=== PATIENT | female | born 1960 | race Caucasian/White ===

== ENCOUNTER 2024-07-04 15:26 | Emergency (ER) | payer OTHER ==
[~2024-07-04] VITALS: Ht 162.6 cm; Wt 104.3 kg
[~2024-07-04 15:26] MED LIST: SACC250C12 GT; VANC1VIA34 IV
[2024-07-04 15:31] VITALS: TEMP 97.9
[2024-07-04] MEDS ORDERED: PIPERACI/TAZO 3.375GM/D5W 50ML PB IV ONE (16:00)
[2024-07-04] MEDS: IV NS 0.9% 1,000 ML IV ONE (16:15)
[2024-07-04] MEDS: PIPERACILLIN /TAZOBACTAM 3.375 G in IV D5W 50 ML IV ONE (16:35)
[2024-07-04 16:54] LABS: APPEARANCE,URINE CLOUDY (CLEAR); BILIRUBIN,URINE NEGATIVE (NEGATIVE); BLOOD, URINE 1+ Ery/uL (NEGATIVE); COLOR,URINE YELLOW (YELLOW); KETONES,URINE NEGATIVE (NEGATIVE); LEUKOCYTE ESTERASE ,URINE 2+ (NEGATIVE); NITRITE, URINE NEGATIVE (NEGATIVE); PROTEIN,URINE 2+ mg/dl (NEGATIVE); UGLUCOSE NEGATIVE (NEGATIVE); UROBILINOGEN,URINE 0.2 EU/dL (0.2)
[2024-07-04 17:06] LABS: ADD URINE CULTURE YES; BACTERIA,URINE 3+ /HPF (None Seen); PH,URINE 8.5 (5.0-8.0); WBC,URINE 21-50 /HPF (0-3)
[2024-07-04 17:07] LABS: FINE GRANULAR CASTS,URINE Few /LPF (None Seen); TRIPLE PHOSPHATE CRYSTAL,UR Moderate /HPF (None Seen); URINE AMORPHOUS PHOSPHATES Many /HPF (None Seen)
[2024-07-04 17:08] LABS: COARSE GRANULAR CASTS,URINE Few /LPF (None Seen)
[2024-07-04] MEDS ORDERED: CHLO473M2 PO (17:11)
[2024-07-04] MEDS ORDERED: FAMO20TA8 GT (17:11)
[2024-07-04] MEDS ORDERED: IPRA0.2S49 IH (17:11)
[2024-07-04] MEDS ORDERED: LOPE2CAP14 GT (17:11)
[2024-07-04] MEDS ORDERED: LABE200T5 GT (17:11)
[2024-07-04] MEDS ORDERED: GABA-532 GT (17:11)
[2024-07-04] MEDS ORDERED: DOCU100C36 GT (17:11)
[2024-07-04] MEDS ORDERED: LEVE500S9 GT (17:11)
[2024-07-04] MEDS ORDERED: HEPA50007 SQ (17:11)
[2024-07-04] MEDS ORDERED: HYDR-4075 GT (17:11)
[2024-07-04] MEDS ORDERED: ACET160L44 GT (17:11)
[2024-07-04] MEDS ORDERED: CRAN425C6 GT (17:11)
[2024-07-04] MEDS ORDERED: ALBU2.5V38 IH (17:11)
[2024-07-04] MEDS ORDERED: MULT-213 GT (17:11)
[2024-07-04] MEDS ORDERED: MAGN400O6 GT (17:11)
[2024-07-04] MEDS ORDERED: NA P133E RC (17:11)
[2024-07-04] MEDS ORDERED: ACET160S GT (17:11)
[2024-07-04 18:02] LABS: BASOPHILS % (AUTO) 0.1 % (0.0-2.0); HEMATOCRIT 28 % (33-45); HEMOGLOBIN 8.8 g/dL (11.5-14.8); LYMPHOCYTES # (AUTO) 0.9 K/uL (0.8-4.8); LYMPHOCYTES % (AUTO) 3.1 % (20.0-44.0); MEAN CORPUSCULAR HEMOGLOBIN 26 PG (26.0-33.0); MEAN CORPUSCULAR HGB CONC 32 g/dl (31.0-36.0); MEAN CORPUSCULAR VOLUME 82 fL (82-100); MONOCYTES % (AUTO) 3.3 % (2.0-12.0); NEUTROPHILS # (AUTO) 26.8 K/uL (1.8-8.9); NEUTROPHILS % (AUTO) 93.5 % (43.0-81.0); PLATELET COUNT (AUTO) 466 K/uL (150-450); RED BLOOD CELL COUNT(AUTO) 3.35 MIL/uL (4.0-5.2); RED CELL DISTRIBUTION WIDTH 17.2 % (11.5-15.0); WHITE BLOOD COUNT (AUTO) 28.7 K/uL (4.3-11.0)
[2024-07-04 18:22] LABS: CALCIUM, SERUM 10.6 mg/dL (8.5-10.1); CARBON DIOXIDE 21 mmol/L (21-32); CHLORIDE 102 mmol/L (98-107); CREATININE 0.6 mg/dL (0.6-1.3); GLUCOSE 97 mg/dL (74-106); POTASSIUM 4.4 mmol/L (3.5-5.1); SODIUM SERUM 136 mmol/L (136-145); UREA NITROGEN, BLOOD 12 mg/dL (7-18)
[2024-07-04 18:32] LABS: LACTIC ACID 3.6 mmol/L (0.4-2.0)
[2024-07-04 18:36] LABS: ALANINE AMINOTRANSFERASE 28 U/L (12-78); ALKALINE PHOSPHATASE 163 U/L (46-116); ASPARTATE AMINOTRANSFERASE 44 U/L (15-37); BILIRUBIN,TOTAL 0.4 mg/dL (0.2-1.0); NT-PRO BNP 994 pg/mL (0-125); TOTAL PROTEIN, SERUM 5.6 g/dL (6.4-8.2)
[2024-07-04 19:09] LABS: ANISOCYTOSIS 1+; BAND % (MANUAL) 7 % (0.0-5.0); LYMPHOCYTES % (MANUAL) 6 % (16-48); MONOCYTES % (MANUAL) 2 % (0-11.0); NEUTROPHILS % (MANUAL) 85 (42-76); PLATELET ESTIMATE INCREASED
[2024-07-04 20:00] VITALS: BP 102/79; O2SAT 100
[2024-07-04 20:26] LABS: BILIRUBIN,DIRECT 0.1 mg/dL (0.0-0.2)
[2024-07-04 20:38] LABS: LACTIC ACID REFLEX 3.1 mmol/L (0.4-1.9)
== END 2024-07-04 21:00 | disposition short-term general hospital (02) ==
LOC: ER 15:30
DX: L03.311 Cellulitis of abdominal wall (principal); I48.91 Unspecified atrial fibrillation; I70.0 Atherosclerosis of aorta; J44.9 Chronic obstructive pulmonary disease, unspecified; K21.9 Gastro-esophageal reflux disease without esophagitis; Z88.1 Allergy status to other antibiotic agents; Z88.8 Allergy status to other drugs, medicaments and biological substances; Z91.041 Radiographic dye allergy status; Z93.0 Tracheostomy status; Z98.1 Arthrodesis status; Z99.11 Dependence on respirator [ventilator] status; Z20.822 Contact with and (suspected) exposure to COVID-19
CPT/HCPCS: 99285; 96365; 71045; 87426; 93005; 82803; 82248; 85025; 87040; 87086; 83605 ×2; 81001; 36415; 80053; 84484; 83880; 36600; 94799; 85007; J2543 ×2; J7060

== ENCOUNTER 2024-07-28 08:03 | Inpatient (IN) | payer OTHER ==
[~2024-07-28] VITALS: Ht 167.6 cm; Wt 108.0 kg
[2024-07-28] MEDS: PIPERACILLIN /TAZOBACTAM 3.375 G in IV D5W 50 ML IV ONE (08:00)
[~2024-07-28 08:03] MED LIST changes: +ACET160L44 GT; +ACET160S GT; +ALBU2.5V38 IH; +CHLO473M2 PO; +CRAN425C6 GT; +DOCU100C36 GT; +FAMO20TA8 GT; +GABA-532 GT; +HEPA50007 SQ; +HYDR-4075 GT; +IPRA0.2S49 IH; +LABE200T5 GT; +LEVE500S9 GT; +LOPE2CAP14 GT; +MAGN400O6 GT; +MULT-213 GT; +NA P133E RC
[2024-07-28] MEDS ORDERED: ACETAMINOPHEN 650 MG/SUPP.RECT RC ONE (08:07)
[2024-07-28] MEDS: ACETAMINOPHEN 650 MG/SUPP.RECT RC ONE (08:11)
[2024-07-28] MEDS: IV NS 0.9% 1,000 ML BAG IV ONE ×2 (08:20→08:40)
[2024-07-28 08:25] LABS: BASOPHILS % (AUTO) 0.1 % (0.0-2.0); HEMATOCRIT 26 % (33-45); HEMOGLOBIN 8.2 g/dL (11.5-14.8); LYMPHOCYTES # (AUTO) 0.7 K/uL (0.8-4.8); LYMPHOCYTES % (AUTO) 2.8 % (20.0-44.0); MEAN CORPUSCULAR HEMOGLOBIN 26 PG (26.0-33.0); MEAN CORPUSCULAR HGB CONC 31 g/dl (31.0-36.0); MEAN CORPUSCULAR VOLUME 84 fL (82-100); MONOCYTES # (AUTO) 0.5 K/uL (0.1-1.30); NEUTROPHILS # (AUTO) 22.4 K/uL (1.8-8.9); NEUTROPHILS % (AUTO) 95.1 % (43.0-81.0); PLATELET COUNT (AUTO) 325 K/uL (150-450); RED BLOOD CELL COUNT(AUTO) 3.13 MIL/uL (4.0-5.2); RED CELL DISTRIBUTION WIDTH 18.7 % (11.5-15.0); WHITE BLOOD COUNT (AUTO) 23.5 K/uL (4.3-11.0)
[2024-07-28 08:52] LABS: ALANINE AMINOTRANSFERASE 12 U/L (12-78); ALKALINE PHOSPHATASE 186 U/L (46-116); ASPARTATE AMINOTRANSFERASE 10 U/L (15-37); BILIRUBIN,DIRECT 0.4 mg/dL (0.0-0.2); BILIRUBIN,TOTAL 0.6 mg/dL (0.2-1.0); CALCIUM, SERUM 8.7 mg/dL (8.5-10.1); CARBON DIOXIDE 25 mmol/L (21-32); CHLORIDE 111 mmol/L (98-107); CREATININE 0.6 mg/dL (0.6-1.3); GLUCOSE 159 mg/dL (74-106); SODIUM SERUM 145 mmol/L (136-145); TOTAL PROTEIN, SERUM 5.5 g/dL (6.4-8.2); UREA NITROGEN, BLOOD 15 mg/dL (7-18)
[2024-07-28 09:04] LABS: ALBUMIN 1.2 g/dL (3.4-5.0)
[2024-07-28] MEDS: VANCOMYCIN 1 GM in IV D5W 250 ML IV ONE (09:05)
[2024-07-28] MEDS ORDERED: LEVE100S GT (09:05)
[2024-07-28] MEDS ORDERED: POTA-88 GT (09:05)
[2024-07-28] MEDS ORDERED: ZINC50TA65 GT (09:05)
[2024-07-28] MEDS ORDERED: LEVO500T90 GT (09:05)
[2024-07-28] MEDS ORDERED: AMIN30LI66 GT (09:05)
[2024-07-28] MEDS ORDERED: ASCO500L2 GT (09:05)
[2024-07-28] MEDS ORDERED: PEPTAMEN GT (09:05)
[2024-07-28] MEDS ORDERED: POVI3780 TP (09:05)
[2024-07-28] MEDS ORDERED: HYDR-4303 GT (09:05)
[2024-07-28 09:06] LABS: LACTIC ACID 4.1 mmol/L (0.4-2.0)
[2024-07-28 10:03] LABS: BAND % (MANUAL) 18 % (0.0-5.0); LYMPHOCYTES % (MANUAL) 3 % (16-48); MYELOCYTES % 1 % (0-0); NEUTROPHILS % (MANUAL) 78 (42-76); PLATELET ESTIMATE ADEQUATE
[2024-07-28 10:04] LABS: ANISOCYTOSIS 1+
[2024-07-28] MEDS ORDERED: POTASSIUM CL. PREMIX PERIPHER. 100 ML ONE (10:05)
[2024-07-28] MEDS: POTASSIUM CL. PREMIX PERIPHER. 50 ML IV SCH (10:10)
[2024-07-28] MEDS ORDERED: IOHEXOL-300 100 ML VIAL IV ONE (10:29)
[2024-07-28] MEDS ORDERED: IV NS 0.9% 250 ML IV ONE (10:29)
[2024-07-28 11:01] LABS: APPEARANCE,URINE SLIGHTLY CLOUDY (CLEAR); BILIRUBIN,URINE NEGATIVE (NEGATIVE); BLOOD, URINE NEGATIVE Ery/uL (NEGATIVE); COLOR,URINE DARK YELLOW (YELLOW); KETONES,URINE NEGATIVE (NEGATIVE); LEUKOCYTE ESTERASE ,URINE 2+ (NEGATIVE); NITRITE, URINE POSITIVE (NEGATIVE); PH,URINE 8.5 (5.0-8.0); PROTEIN,URINE 3+ mg/dl (NEGATIVE); UGLUCOSE NEGATIVE (NEGATIVE); UROBILINOGEN,URINE 0.2 EU/dL (0.2)
[2024-07-28 11:51] LABS: ADD URINE CULTURE YES; BACTERIA,URINE 3+ /HPF (None Seen); CALCIUM PHOSPHATE CRYSTALS,UR Moderate /HPF (None Seen); RBC,URINE 0-2 /HPF (0-2)
[2024-07-28] MEDS: Magnesium 1GM/D5W 100ML PREMIX 100 ML IV SCH (13:18)
[2024-07-28] MEDS ORDERED: MAG HYDROX/AL HYDROX/SIMETH 30 ML UDC PO PRN (13:30)
[2024-07-28] MEDS ORDERED: ONDANSETRON HCL/PF 4 MG/2 ML VIAL IVP PRN (13:30)
[2024-07-28] MEDS ORDERED: ACETAMINOPHEN 325 MG TABLET PO PRN (13:30)
[2024-07-28] MEDS ORDERED: MAGNESIUM HYDROXIDE 30 ML UDC PO PRN (13:30)
[2024-07-28 13:58] LABS: THYROID STIMULATING HORMONE 3.21 uIU/mL (0.358-3.74)
[2024-07-28] MEDS: ENOXAPARIN SODIUM 40 MG/0.4 ML DISP.SYRIN SQ SCH (14:41)
[2024-07-28] MEDS: CEFEPIME 2 GM in IV D5W 100 ML IV SCH (14:42)
[2024-07-28] MEDS: VANCOMYCIN 1 GM in IV D5W 250ml IV ONE (15:38)
[2024-07-28 16:00] VITALS: BP 84/63; TEMP 98.7; O2SAT 99
[2024-07-28] MEDS ORDERED: METRONIDAZOLE 500 MG TABLET PO SCH (18:00)
[2024-07-28] MEDS: METRONIDAZOLE 500MG/ NS 100ML 500 MG in PREMIX 1 EA IV SCH (19:15)
[2024-07-28 20:00] VITALS: BP 99/60; TEMP 98.7; O2SAT 99
[2024-07-28] MEDS: IV 1/2NS 1000 ML 1,000 ML IV PRN (22:10)
[2024-07-29] VITALS (14 sets, daily range): BP systolic 82–132; BP diastolic 57–87; TEMP 97.4–101.7; O2SAT 96–100
[2024-07-29] MEDS: ACETAMINOPHEN 650 MG/SUPP.RECT RC PRN (01:37)
[2024-07-29 06:59] LABS: CALCIUM, SERUM 8.9 mg/dL (8.5-10.1); CREATININE 0.7 mg/dL (0.6-1.3); PHOSPHORUS 3.7 mg/dL (2.5-4.9); POTASSIUM 3.4 mmol/L (3.5-5.1)
[2024-07-29 07:00] LABS: HEMATOCRIT 28 % (33-45); HEMOGLOBIN 8.5 g/dL (11.5-14.8); LYMPHOCYTES # (AUTO) 1.2 K/uL (0.8-4.8); LYMPHOCYTES % (AUTO) 3.7 % (20.0-44.0); MEAN CORPUSCULAR HEMOGLOBIN 26 PG (26.0-33.0); MEAN CORPUSCULAR HGB CONC 30 g/dl (31.0-36.0); MEAN CORPUSCULAR VOLUME 84 fL (82-100); MONOCYTES # (AUTO) 0.9 K/uL (0.1-1.30); MONOCYTES % (AUTO) 2.7 % (2.0-12.0); NEUTROPHILS # (AUTO) 30.1 K/uL (1.8-8.9); NEUTROPHILS % (AUTO) 93.6 % (43.0-81.0); PLATELET COUNT (AUTO) 365 K/uL (150-450); RED BLOOD CELL COUNT(AUTO) 3.32 MIL/uL (4.0-5.2); RED CELL DISTRIBUTION WIDTH 18.6 % (11.5-15.0)
[2024-07-29 07:01] LABS: WHITE BLOOD COUNT (AUTO) 32.2 K/uL (4.3-11.0)
[2024-07-29] MEDS: VANCOMYCIN 1 GM in IV D5W 250ml IV SCH (07:14)
[2024-07-29] MEDS: PANTOPRAZOLE 40 MG TABLET.DR PO SCH (07:30)
[2024-07-29 09:53] LABS: BAND % (MANUAL) 3 % (0.0-5.0); LYMPHOCYTES % (MANUAL) 6 % (16-48); MONOCYTES % (MANUAL) 2 % (0-11.0); NEUTROPHILS % (MANUAL) 89 (42-76)
[2024-07-29 09:54] LABS: PLATELET ESTIMATE ADEQUATE
[2024-07-29 09:55] LABS: ANISOCYTOSIS 1+
[2024-07-29 09:56] LABS: OVALOCYTES 1+; TEAR DROP CELLS 1+
[2024-07-29] MEDS: POTASSIUM CL. PREMIX PERIPHER. 50 ML IV SCH (10:00)
[2024-07-29] MEDS: PANTOPRAZOLE 40 MG VIAL IV SCH (10:51)
[2024-07-29] MEDS: THERAHONEY GEL 1.5 OZ TUBE TP SCH (11:09)
[2024-07-29] MEDS: LEVETIRACETAM (500MG) 500 MG in IV NS 0.9% 100 ML IV SCH (15:39)
[2024-07-29] MEDS ORDERED: PHENYLEPHRINE 50 MG in IV NS 0.9% 245 ML IV PRN (18:00)
[2024-07-29] MEDS: MEROPENEM 500MG/NS 50 ML PB IV ONE (21:41)
[2024-07-29] MEDS: MEROPENEM 1 G in IV NS 0.9% 100 ML IV ONE (21:48)
[2024-07-30] VITALS (24 sets, daily range): BP systolic 81–117; BP diastolic 53–78; TEMP 98.4–99.6; O2SAT 97–100
[2024-07-30 05:21] LABS: CALCIUM, SERUM 8.4 mg/dL (8.5-10.1); CREATININE 1.1 mg/dL (0.6-1.3); POTASSIUM 3.8 mmol/L (3.5-5.1)
[2024-07-30] MEDS: MEROPENEM 1 G in IV NS 0.9% 100 ML IV SCH (08:10)
[2024-07-30 13:32] LABS: CREATININE, URINE 67.7 MG/DL (30.0-125.0); URINE TOTAL PROTEIN 200.8 mg/dL (0-11.9)
[2024-07-31] VITALS (27 sets, daily range): BP systolic 77–107; BP diastolic 54–78; TEMP 97.3–98.9; O2SAT 88–100
[2024-07-31] MEDS ORDERED: LEVETIRACETAM (500MG) 500 MG/5 ML VIAL IV ONE (04:20)
[2024-07-31 04:30] LABS: CALCIUM, SERUM 8.2 mg/dL (8.5-10.1); CREATININE 1.8 mg/dL (0.6-1.3); MAGNESIUM 1.9 mg/dL (1.8-2.4); PHOSPHORUS 5.9 mg/dL (2.5-4.9); POTASSIUM 3.8 mmol/L (3.5-5.1)
[2024-07-31 04:36] LABS: BASOPHILS # (AUTO) 0.1 K/uL (0.0-0.2); BASOPHILS % (AUTO) 0.1 % (0.0-2.0); HEMATOCRIT 29 % (33-45); HEMOGLOBIN 8.9 g/dL (11.5-14.8); LYMPHOCYTES # (AUTO) 1.6 K/uL (0.8-4.8); LYMPHOCYTES % (AUTO) 2.9 % (20.0-44.0); MEAN CORPUSCULAR HEMOGLOBIN 26 PG (26.0-33.0); MEAN CORPUSCULAR HGB CONC 30 g/dl (31.0-36.0); MEAN CORPUSCULAR VOLUME 85 fL (82-100); MONOCYTES # (AUTO) 1.3 K/uL (0.1-1.30); MONOCYTES % (AUTO) 2.3 % (2.0-12.0); NEUTROPHILS # (AUTO) 51.9 K/uL (1.8-8.9); NEUTROPHILS % (AUTO) 94.7 % (43.0-81.0); PLATELET COUNT (AUTO) 400 K/uL (150-450); RED BLOOD CELL COUNT(AUTO) 3.43 MIL/uL (4.0-5.2); RED CELL DISTRIBUTION WIDTH 18.6 % (11.5-15.0)
[2024-07-31 05:24] LABS: WHITE BLOOD COUNT (AUTO) 54.9 K/uL (4.3-11.0)
[2024-07-31 06:09] LABS: ANISOCYTOSIS 1+; LYMPHOCYTES % (MANUAL) 10 % (16-48); MONOCYTES % (MANUAL) 7 % (0-11.0); NEUTROPHILS % (MANUAL) 83 (42-76); PLATELET ESTIMATE ADEQUATE
[2024-07-31 09:01] LABS: BASOPHILS # (AUTO) 0.2 K/uL (0.0-0.2); BASOPHILS % (AUTO) 0.4 % (0.0-2.0); EOSINOPHILS % (AUTO) 0.1 % (0.0-6.0); HEMATOCRIT 31 % (33-45); HEMOGLOBIN 9.4 g/dL (11.5-14.8); LYMPHOCYTES # (AUTO) 1.2 K/uL (0.8-4.8); LYMPHOCYTES % (AUTO) 2.8 % (20.0-44.0); MEAN CORPUSCULAR HEMOGLOBIN 25 PG (26.0-33.0); MEAN CORPUSCULAR HGB CONC 30 g/dl (31.0-36.0); MEAN CORPUSCULAR VOLUME 84 fL (82-100); MONOCYTES % (AUTO) 2.4 % (2.0-12.0); NEUTROPHILS # (AUTO) 41.2 K/uL (1.8-8.9); NEUTROPHILS % (AUTO) 94.3 % (43.0-81.0); PLATELET COUNT (AUTO) 339 K/uL (150-450); RED BLOOD CELL COUNT(AUTO) 3.72 MIL/uL (4.0-5.2); RED CELL DISTRIBUTION WIDTH 18.9 % (11.5-15.0)
[2024-07-31 09:11] LABS: WHITE BLOOD COUNT (AUTO) 43.6 K/uL (4.3-11.0)
[2024-07-31] MEDS: HYDROCORTISONE SOD SUCCINATE 100 MG/2 ML VIAL IV SCH (09:25)
[2024-07-31 09:58] LABS: BAND % (MANUAL) 1 % (0.0-5.0); LYMPHOCYTES % (MANUAL) 5 % (16-48); MONOCYTES % (MANUAL) 2 % (0-11.0); MYELOCYTES % 5 % (0-0); NEUTROPHILS % (MANUAL) 87 (42-76); PLATELET ESTIMATE ADEQUATE
[2024-07-31 09:59] LABS: ANISOCYTOSIS 1+; OVALOCYTES 1+
[2024-07-31] MEDS: DIGOXIN INJ 0.5 MG/2 ML AMPUL IV SCH (11:05)
[2024-07-31] MEDS: MIDODRINE HCL (5MG) 5 MG TABLET PO SCH (12:55)
[2024-08-01] VITALS (29 sets, daily range): BP systolic 83–128; BP diastolic 55–82; TEMP 97.6–98; O2SAT 93–100
[2024-08-01 04:47] LABS: BASOPHILS # (AUTO) 0.1 K/uL (0.0-0.2); BASOPHILS % (AUTO) 0.2 % (0.0-2.0); EOSINOPHILS % (AUTO) 0.1 % (0.0-6.0); HEMATOCRIT 26 % (33-45); HEMOGLOBIN 7.9 g/dL (11.5-14.8); LYMPHOCYTES # (AUTO) 0.9 K/uL (0.8-4.8); LYMPHOCYTES % (AUTO) 1.9 % (20.0-44.0); MEAN CORPUSCULAR HEMOGLOBIN 25 PG (26.0-33.0); MEAN CORPUSCULAR HGB CONC 30 g/dl (31.0-36.0); MEAN CORPUSCULAR VOLUME 84 fL (82-100); NEUTROPHILS # (AUTO) 45.8 K/uL (1.8-8.9); NEUTROPHILS % (AUTO) 95.8 % (43.0-81.0); PLATELET COUNT (AUTO) 339 K/uL (150-450); RED BLOOD CELL COUNT(AUTO) 3.13 MIL/uL (4.0-5.2); RED CELL DISTRIBUTION WIDTH 18.8 % (11.5-15.0)
[2024-08-01 04:54] LABS: WHITE BLOOD COUNT (AUTO) 47.8 K/uL (4.3-11.0)
[2024-08-01 04:59] LABS: CALCIUM, SERUM 7.6 mg/dL (8.5-10.1); POTASSIUM 3.9 mmol/L (3.5-5.1)
[2024-08-01 05:21] LABS: ANISOCYTOSIS 1+; LYMPHOCYTES % (MANUAL) 4 % (16-48); MONOCYTES % (MANUAL) 2 % (0-11.0); NEUTROPHILS % (MANUAL) 94 (42-76); PLATELET ESTIMATE ADEQUATE
[2024-08-01] MEDS: MIDODRINE HCL (5MG) 5 MG TABLET PO SCH (08:42)
[2024-08-02] VITALS (27 sets, daily range): BP systolic 83–117; BP diastolic 53–88; TEMP 97.6–98.4; O2SAT 96–100
[2024-08-02 05:03] LABS: BASOPHILS # (AUTO) 0.1 K/uL (0.0-0.2); BASOPHILS % (AUTO) 0.1 % (0.0-2.0); EOSINOPHILS % (AUTO) 0.1 % (0.0-6.0); HEMATOCRIT 26 % (33-45); LYMPHOCYTES # (AUTO) 1.4 K/uL (0.8-4.8); MEAN CORPUSCULAR HEMOGLOBIN 26 PG (26.0-33.0); MEAN CORPUSCULAR HGB CONC 30 g/dl (31.0-36.0); MEAN CORPUSCULAR VOLUME 84 fL (82-100); MONOCYTES # (AUTO) 1.1 K/uL (0.1-1.30); MONOCYTES % (AUTO) 2.3 % (2.0-12.0); NEUTROPHILS # (AUTO) 42.8 K/uL (1.8-8.9); NEUTROPHILS % (AUTO) 94.5 % (43.0-81.0); PLATELET COUNT (AUTO) 358 K/uL (150-450); RED BLOOD CELL COUNT(AUTO) 3.11 MIL/uL (4.0-5.2); RED CELL DISTRIBUTION WIDTH 18.5 % (11.5-15.0)
[2024-08-02 05:06] LABS: WHITE BLOOD COUNT (AUTO) 45.3 K/uL (4.3-11.0)
[2024-08-02 05:16] LABS: CALCIUM, SERUM 7.2 mg/dL (8.5-10.1); CREATININE 2.2 mg/dL (0.6-1.3); POTASSIUM 3.6 mmol/L (3.5-5.1)
[2024-08-02 08:16] LABS: BAND % (MANUAL) 2 % (0.0-5.0); EOSINOPHILS % (MANUAL) 0 % (0-4); LYMPHOCYTES % (MANUAL) 5 % (16-48); METAMYELOCYTES % 2 % (0-0); MONOCYTES % (MANUAL) 3 % (0-11.0); MYELOCYTES % 3 % (0-0); NEUTROPHILS % (MANUAL) 85 (42-76); PLATELET ESTIMATE DECREASED
[2024-08-02 08:17] LABS: ANISOCYTOSIS 1+; HYPOCHROMASIA 1+
[2024-08-02] MEDS: HYDROCORTISONE SOD SUCCINATE 100 MG/2 ML VIAL IV SCH (08:47)
[2024-08-02] MEDS ORDERED: VANCOMYCIN 1 GM in IV D5W 250 ML IV SCH (10:00)
[2024-08-02] MEDS: DEXTROSE 50%-WATER 50 ML DISP.SYRIN IVP ONE (10:09)
[2024-08-02] MEDS ORDERED: MAGNESIUM HYDROXIDE 30 ML UDC GT PRN (10:13)
[2024-08-02 10:17] LABS: ABG BASE EXCESS -11.6 mmol/L (-2.0-3.0); ABG OXYGEN SATURATION 97.7 % (94.0-98.0); ABG PCO2 23.6 mmHg (32.0-45.0); ABG PH 7.346 (7.350-7.450); ABG PO2 108.5 mmHg (83.0-108.0); ABG TOTAL HEMOGLOBIN 8.8 G/dL (12.0-16.0); COHb 0.3 % (0.5-1.5); MetHb 0.2 % (0.0-1.5); O2Hb 97.2 % (94.0-97.0); PEEP,BG 0 cm H2O; SITE, ABG RIGHT RADIAL; VT, ABG 500 mL
[2024-08-02] MEDS: Sodium Bicarbonate 100 MEQ in IV D5 / 0.2% NACL 1,000 ML IV SCH (11:42)
[2024-08-02] MEDS: VITAL AF 1.2 1,000 ML BOTTLE GT PRN (12:14)
[2024-08-02] MEDS: MIDODRINE HCL (5MG) 5 MG TABLET GT SCH (12:21)
[2024-08-03] VITALS (24 sets, daily range): BP systolic 90–130; BP diastolic 60–96; TEMP 97.3–98.3; O2SAT 93–100
[2024-08-03 04:31] LABS: BASOPHILS # (AUTO) 0.1 K/uL (0.0-0.2); BASOPHILS % (AUTO) 0.3 % (0.0-2.0); EOSINOPHILS % (AUTO) 0.1 % (0.0-6.0); HEMATOCRIT 23 % (33-45); HEMOGLOBIN 7.1 g/dL (11.5-14.8); LYMPHOCYTES # (AUTO) 1.4 K/uL (0.8-4.8); LYMPHOCYTES % (AUTO) 3.6 % (20.0-44.0); MEAN CORPUSCULAR HEMOGLOBIN 25 PG (26.0-33.0); MEAN CORPUSCULAR HGB CONC 30 g/dl (31.0-36.0); MEAN CORPUSCULAR VOLUME 83 fL (82-100); MONOCYTES # (AUTO) 0.7 K/uL (0.1-1.30); PLATELET COUNT (AUTO) 309 K/uL (150-450); RED CELL DISTRIBUTION WIDTH 18.4 % (11.5-15.0)
[2024-08-03 05:16] LABS: WHITE BLOOD COUNT (AUTO) 38.3 K/uL (4.3-11.0)
[2024-08-03 05:24] LABS: ANISOCYTOSIS 1+; LYMPHOCYTES % (MANUAL) 5 % (16-48); MONOCYTES % (MANUAL) 4 % (0-11.0); NEUTROPHILS % (MANUAL) 91 (42-76); PLATELET ESTIMATE ADEQUATE
[2024-08-03 05:26] LABS: CALCIUM, SERUM 6.6 mg/dL (8.5-10.1); CREATININE 2.4 mg/dL (0.6-1.3); MAGNESIUM 1.9 mg/dL (1.8-2.4); PHOSPHORUS 7.6 mg/dL (2.5-4.9)
[2024-08-03] MEDS: LEVETIRACETAM SOL (5 ML) 100 MG/ML UDC GT SCH (09:10)
[2024-08-03] MEDS: PANTOPRAZOLE 40 MG/PACK PACK NG SCH (09:11)
[2024-08-03] MEDS: POTASSIUM CL. PREMIX PERIPHER. 50 ML IV SCH (09:14)
[2024-08-03] MEDS: POTASSIUM CHLORIDE 20 MEQ POWDER PACKET NG SCH (10:45)
[2024-08-04] VITALS (26 sets, daily range): BP systolic 91–133; BP diastolic 55–89; TEMP 97.2–98.4; O2SAT 98–100
[2024-08-04 05:25] LABS: CALCIUM, SERUM 6.9 mg/dL (8.5-10.1); CREATININE 2.4 mg/dL (0.6-1.3); POTASSIUM 3.3 mmol/L (3.5-5.1)
[2024-08-04] MEDS: POTASSIUM CL. PREMIX PERIPHER. 50 ML IV SCH (09:28)
[2024-08-04 12:18] LABS: BASOPHILS # (AUTO) 0.1 K/uL (0.0-0.2); BASOPHILS % (AUTO) 0.3 % (0.0-2.0); EOSINOPHILS # (AUTO) 0.1 K/uL (0.0-0.7); EOSINOPHILS % (AUTO) 0.3 % (0.0-6.0); HEMATOCRIT 26 % (33-45); HEMOGLOBIN 7.7 g/dL (11.5-14.8); LYMPHOCYTES # (AUTO) 0.8 K/uL (0.8-4.8); LYMPHOCYTES % (AUTO) 2.5 % (20.0-44.0); MEAN CORPUSCULAR HEMOGLOBIN 26 PG (26.0-33.0); MEAN CORPUSCULAR HGB CONC 30 g/dl (31.0-36.0); MEAN CORPUSCULAR VOLUME 86 fL (82-100); MONOCYTES # (AUTO) 1.1 K/uL (0.1-1.30); MONOCYTES % (AUTO) 3.2 % (2.0-12.0); NEUTROPHILS # (AUTO) 31.7 K/uL (1.8-8.9); NEUTROPHILS % (AUTO) 93.7 % (43.0-81.0); PLATELET COUNT (AUTO) 291 K/uL (150-450); RED CELL DISTRIBUTION WIDTH 18.7 % (11.5-15.0)
[2024-08-04 12:23] LABS: WHITE BLOOD COUNT (AUTO) 33.9 K/uL (4.3-11.0)
[2024-08-04 13:08] LABS: ANISOCYTOSIS 1+; BAND % (MANUAL) 4 % (0.0-5.0); BASOPHILS % (MANUAL) 0 % (0.0-2.0); EOSINOPHILS % (MANUAL) 0 % (0-4); HYPOCHROMASIA FEW; LYMPHOCYTES % (MANUAL) 2 % (16-48); MONOCYTES % (MANUAL) 5 % (0-11.0); NEUTROPHILS % (MANUAL) 89 (42-76); PLATELET ESTIMATE ADEQUATE
[2024-08-05] VITALS (23 sets, daily range): BP systolic 90–130; BP diastolic 70–94; TEMP 97.6–98; O2SAT 99–100
[2024-08-05 04:45] LABS: EOSINOPHILS # (AUTO) 0.1 K/uL (0.0-0.7); EOSINOPHILS % (AUTO) 0.3 % (0.0-6.0); HEMATOCRIT 23 % (33-45); HEMOGLOBIN 7.4 g/dL (11.5-14.8); LYMPHOCYTES # (AUTO) 0.6 K/uL (0.8-4.8); LYMPHOCYTES % (AUTO) 2.5 % (20.0-44.0); MEAN CORPUSCULAR HEMOGLOBIN 26 PG (26.0-33.0); MEAN CORPUSCULAR HGB CONC 32 g/dl (31.0-36.0); MEAN CORPUSCULAR VOLUME 83 fL (82-100); MONOCYTES # (AUTO) 0.9 K/uL (0.1-1.30); MONOCYTES % (AUTO) 3.7 % (2.0-12.0); NEUTROPHILS # (AUTO) 23.6 K/uL (1.8-8.9); NEUTROPHILS % (AUTO) 93.5 % (43.0-81.0); PLATELET COUNT (AUTO) 220 K/uL (150-450); RED BLOOD CELL COUNT(AUTO) 2.82 MIL/uL (4.0-5.2); RED CELL DISTRIBUTION WIDTH 18.4 % (11.5-15.0); WHITE BLOOD COUNT (AUTO) 25.2 K/uL (4.3-11.0)
[2024-08-05 05:10] LABS: CREATININE 2.6 mg/dL (0.6-1.3); POTASSIUM 2.9 mmol/L (3.5-5.1)
[2024-08-05] MEDS ORDERED: MAG HYDROX/AL HYDROX/SIMETH 30 ML UDC GT PRN (06:16)
[2024-08-05 06:22] LABS: EOSINOPHILS % (MANUAL) 1 % (0-4); LYMPHOCYTES % (MANUAL) 4 % (16-48); METAMYELOCYTES % 1 % (0-0); MONOCYTES % (MANUAL) 3 % (0-11.0); MYELOCYTES % 3 % (0-0); NEUTROPHILS % (MANUAL) 88 (42-76); PLATELET ESTIMATE ADEQUATE
[2024-08-05 06:23] LABS: ANISOCYTOSIS 1+
[2024-08-05 08:36] LABS: ABG BASE EXCESS -9.3 mmol/L (-2.0-3.0); ABG OXYGEN SATURATION 98.3 % (94.0-98.0); ABG PCO2 30.3 mmHg (32.0-45.0); ABG PO2 128.7 mmHg (83.0-108.0); ABG TOTAL HEMOGLOBIN 8.1 G/dL (12.0-16.0); COHb 0.3 % (0.5-1.5); MetHb 0.2 % (0.0-1.5); O2Hb 97.8 % (94.0-97.0); VT, ABG 500 mL
[2024-08-05] MEDS: POTASSIUM CL. PREMIX PERIPHER. 50 ML IV SCH (09:09)
[2024-08-05] MEDS ORDERED: VANCOMYCIN 1 GM in IV D5W 250 ML IV SCH (10:00)
[2024-08-05] MEDS: IV NS 0.9% 250 ML IV PRN (22:37)
[2024-08-06] VITALS (28 sets, daily range): BP systolic 90–116; BP diastolic 54–93; TEMP 97–98; O2SAT 97–100
[2024-08-06 04:57] LABS: CALCIUM, SERUM 7.2 mg/dL (8.5-10.1); CREATININE 2.5 mg/dL (0.6-1.3)
[2024-08-06 05:15] LABS: BASOPHILS % (AUTO) 0.3 % (0.0-2.0); EOSINOPHILS # (AUTO) 0.1 K/uL (0.0-0.7); EOSINOPHILS % (AUTO) 0.4 % (0.0-6.0); HEMATOCRIT 22 % (33-45); LYMPHOCYTES # (AUTO) 0.7 K/uL (0.8-4.8); LYMPHOCYTES % (AUTO) 3.6 % (20.0-44.0); MEAN CORPUSCULAR HEMOGLOBIN 25 PG (26.0-33.0); MEAN CORPUSCULAR HGB CONC 31 g/dl (31.0-36.0); MEAN CORPUSCULAR VOLUME 82 fL (82-100); MONOCYTES # (AUTO) 0.5 K/uL (0.1-1.30); MONOCYTES % (AUTO) 2.8 % (2.0-12.0); NEUTROPHILS # (AUTO) 16.9 K/uL (1.8-8.9); NEUTROPHILS % (AUTO) 92.9 % (43.0-81.0); PLATELET COUNT (AUTO) 172 K/uL (150-450); RED BLOOD CELL COUNT(AUTO) 2.73 MIL/uL (4.0-5.2); RED CELL DISTRIBUTION WIDTH 18.8 % (11.5-15.0); WHITE BLOOD COUNT (AUTO) 18.2 K/uL (4.3-11.0)
[2024-08-06 05:37] LABS: HEMOGLOBIN 6.9 g/dL (11.5-14.8)
[2024-08-06 06:11] LABS: BAND % (MANUAL) 3 % (0.0-5.0); METAMYELOCYTES % 3 % (0-0); MONOCYTES % (MANUAL) 4 % (0-11.0); MYELOCYTES % 5 % (0-0); NEUTROPHILS % (MANUAL) 85 (42-76)
[2024-08-06 06:12] LABS: ANISOCYTOSIS 1+; HYPOCHROMASIA 1+; PLATELET ESTIMATE ADEQUATE; TARGET CELLS 1+
[2024-08-06 06:24] LABS: LYMPHOCYTES % (MANUAL) 0 % (16-48)
[2024-08-06] MEDS: POTASSIUM CHLORIDE 20 MEQ POWDER PACKET GT ONE (10:50)
[2024-08-07] VITALS (24 sets, daily range): BP systolic 91–129; BP diastolic 68–94; TEMP 97.4–98; O2SAT 99–100
[2024-08-07 05:26] LABS: BASOPHILS % (AUTO) 0.1 % (0.0-2.0); EOSINOPHILS # (AUTO) 0.1 K/uL (0.0-0.7); EOSINOPHILS % (AUTO) 0.3 % (0.0-6.0); HEMATOCRIT 25 % (33-45); HEMOGLOBIN 8.3 g/dL (11.5-14.8); LYMPHOCYTES # (AUTO) 0.8 K/uL (0.8-4.8); LYMPHOCYTES % (AUTO) 4.9 % (20.0-44.0); MEAN CORPUSCULAR HEMOGLOBIN 27 PG (26.0-33.0); MEAN CORPUSCULAR HGB CONC 33 g/dl (31.0-36.0); MEAN CORPUSCULAR VOLUME 81 fL (82-100); MONOCYTES # (AUTO) 0.4 K/uL (0.1-1.30); MONOCYTES % (AUTO) 2.4 % (2.0-12.0); NEUTROPHILS # (AUTO) 14.4 K/uL (1.8-8.9); NEUTROPHILS % (AUTO) 92.3 % (43.0-81.0); PLATELET COUNT (AUTO) 161 K/uL (150-450); RED BLOOD CELL COUNT(AUTO) 3.13 MIL/uL (4.0-5.2); RED CELL DISTRIBUTION WIDTH 18.3 % (11.5-15.0); WHITE BLOOD COUNT (AUTO) 15.6 K/uL (4.3-11.0)
[2024-08-07 05:33] LABS: CALCIUM, SERUM 7.5 mg/dL (8.5-10.1); CREATININE 2.6 mg/dL (0.6-1.3); MAGNESIUM 1.9 mg/dL (1.8-2.4); PHOSPHORUS 6.5 mg/dL (2.5-4.9); POTASSIUM 3.3 mmol/L (3.5-5.1)
[2024-08-07 10:05] LABS: BAND % (MANUAL) 1 % (0.0-5.0); LYMPHOCYTES % (MANUAL) 7 % (16-48); METAMYELOCYTES % 1 % (0-0); MONOCYTES % (MANUAL) 3 % (0-11.0); MYELOCYTES % 3 % (0-0); NEUTROPHILS % (MANUAL) 85 (42-76)
[2024-08-07 10:06] LABS: PLATELET ESTIMATE ADEQUATE
[2024-08-07 10:07] LABS: ANISOCYTOSIS 1+; TARGET CELLS 1+
[2024-08-08] VITALS (8 sets, daily range): BP systolic 94–115; BP diastolic 58–85; TEMP 97.5–98.8; O2SAT 97–100
[2024-08-08 07:38] LABS: CALCIUM, SERUM 7.7 mg/dL (8.5-10.1); CREATININE 2.5 mg/dL (0.6-1.3); MAGNESIUM 1.8 mg/dL (1.8-2.4); PHOSPHORUS 6.5 mg/dL (2.5-4.9)
[2024-08-08 07:48] LABS: BASOPHILS # (AUTO) 0.1 K/uL (0.0-0.2); BASOPHILS % (AUTO) 0.4 % (0.0-2.0); EOSINOPHILS % (AUTO) 0.2 % (0.0-6.0); HEMATOCRIT 25 % (33-45); HEMOGLOBIN 8.1 g/dL (11.5-14.8); LYMPHOCYTES # (AUTO) 2.4 K/uL (0.8-4.8); LYMPHOCYTES % (AUTO) 16.6 % (20.0-44.0); MEAN CORPUSCULAR HEMOGLOBIN 27 PG (26.0-33.0); MEAN CORPUSCULAR HGB CONC 32 g/dl (31.0-36.0); MEAN CORPUSCULAR VOLUME 83 fL (82-100); MONOCYTES # (AUTO) 0.3 K/uL (0.1-1.30); MONOCYTES % (AUTO) 2.3 % (2.0-12.0); NEUTROPHILS # (AUTO) 11.5 K/uL (1.8-8.9); NEUTROPHILS % (AUTO) 80.5 % (43.0-81.0); PLATELET COUNT (AUTO) 123 K/uL (150-450); RED BLOOD CELL COUNT(AUTO) 3.04 MIL/uL (4.0-5.2); RED CELL DISTRIBUTION WIDTH 18.4 % (11.5-15.0); WHITE BLOOD COUNT (AUTO) 14.3 K/uL (4.3-11.0)
[2024-08-08] MEDS: VANCOMYCIN 1 GM in IV D5W 250 ML IV SCH (10:00)
[2024-08-08] MEDS: POTASSIUM CHLORIDE 20 MEQ POWDER PACKET GT ONE (10:42)
[2024-08-09] VITALS: BP 94/78; TEMP 98.2; O2SAT 99
[2024-08-09 04:00] VITALS: BP 107/78; TEMP 98.5; O2SAT 99
[2024-08-09 07:27] LABS: CALCIUM, SERUM 7.7 mg/dL (8.5-10.1); CREATININE 2.7 mg/dL (0.6-1.3); POTASSIUM 3.4 mmol/L (3.5-5.1)
[2024-08-09 08:00] VITALS: BP 107/77; TEMP 98.2; O2SAT 100
[2024-08-09 08:22] LABS: ABG BASE EXCESS -7.2 mmol/L (-2.0-3.0); ABG OXYGEN SATURATION 97.6 % (94.0-98.0); ABG PCO2 25.7 mmHg (32.0-45.0); ABG PH 7.418 (7.350-7.450); ABG PO2 105.2 mmHg (83.0-108.0); ABG TOTAL HEMOGLOBIN 8.8 G/dL (12.0-16.0); MetHb 0.2 % (0.0-1.5); O2Hb 97.4 % (94.0-97.0); PEEP,BG 0 cm H2O; SITE, ABG RIGHT RADIAL; VT, ABG 500 mL
[2024-08-09] MEDS: POTASSIUM CHLORIDE 20 MEQ POWDER PACKET GT SCH (08:37)
[2024-08-09] MEDS ORDERED: POTASSIUM CHLORIDE 20 MEQ POWDER PACKET GT SCH (09:00)
[2024-08-09 10:28] LABS: BASOPHILS # (AUTO) 0.1 K/uL (0.0-0.2); BASOPHILS % (AUTO) 0.5 % (0.0-2.0); EOSINOPHILS % (AUTO) 0.1 % (0.0-6.0); HEMATOCRIT 25 % (33-45); HEMOGLOBIN 8.1 g/dL (11.5-14.8); LYMPHOCYTES # (AUTO) 0.9 K/uL (0.8-4.8); LYMPHOCYTES % (AUTO) 5.5 % (20.0-44.0); MEAN CORPUSCULAR HEMOGLOBIN 26 PG (26.0-33.0); MEAN CORPUSCULAR HGB CONC 32 g/dl (31.0-36.0); MEAN CORPUSCULAR VOLUME 82 fL (82-100); MONOCYTES # (AUTO) 0.4 K/uL (0.1-1.30); MONOCYTES % (AUTO) 2.4 % (2.0-12.0); NEUTROPHILS # (AUTO) 14.7 K/uL (1.8-8.9); NEUTROPHILS % (AUTO) 91.5 % (43.0-81.0); PLATELET COUNT (AUTO) 119 K/uL (150-450); RED BLOOD CELL COUNT(AUTO) 3.08 MIL/uL (4.0-5.2); RED CELL DISTRIBUTION WIDTH 18.1 % (11.5-15.0)
[2024-08-09 11:11] LABS: BAND % (MANUAL) 1 % (0.0-5.0); LYMPHOCYTES % (MANUAL) 6 % (16-48); METAMYELOCYTES % 1 % (0-0); MONOCYTES % (MANUAL) 2 % (0-11.0); MYELOCYTES % 2 % (0-0); NEUTROPHILS % (MANUAL) 88 (42-76); PLATELET ESTIMATE DECREASED
[2024-08-09 11:13] LABS: TARGET CELLS 1+
[2024-08-09 11:14] LABS: ANISOCYTOSIS 1+
[2024-08-09 12:00] VITALS: BP 110/83; TEMP 97.4; O2SAT 99
[2024-08-09 16:00] VITALS: BP 113/86; TEMP 97.5; O2SAT 100
[2024-08-09] MEDS: PROSOURCE / PROSTAT (PYXIS) 30 ML UDC GT SCH (17:27)
[2024-08-09 20:00] VITALS: BP 109/78; TEMP 98.1; O2SAT 100
[2024-08-09] MEDS: MEROPENEM 500 MG in IV NS 0.9% 50 ML IV SCH (20:39)
[2024-08-09] MEDS: IV NS 0.9% 1,000 ML IV PRN (21:43)
[2024-08-10] VITALS: BP 109/69; TEMP 98.1; O2SAT 100
[2024-08-10 04:00] VITALS: BP 117/89; TEMP 97.9; O2SAT 100
[2024-08-10 08:00] VITALS: BP 109/73; TEMP 99.3; O2SAT 100
[2024-08-10 09:03] LABS: CALCIUM, SERUM 8.1 mg/dL (8.5-10.1); CREATININE 2.6 mg/dL (0.6-1.3); MAGNESIUM 1.9 mg/dL (1.8-2.4); PHOSPHORUS 7.2 mg/dL (2.5-4.9); POTASSIUM 3.6 mmol/L (3.5-5.1)
[2024-08-10 09:27] LABS: BASOPHILS % (AUTO) 0.3 % (0.0-2.0); HEMATOCRIT 24 % (33-45); HEMOGLOBIN 7.8 g/dL (11.5-14.8); LYMPHOCYTES # (AUTO) 2.2 K/uL (0.8-4.8); LYMPHOCYTES % (AUTO) 14.4 % (20.0-44.0); MEAN CORPUSCULAR HEMOGLOBIN 26 PG (26.0-33.0); MEAN CORPUSCULAR HGB CONC 32 g/dl (31.0-36.0); MEAN CORPUSCULAR VOLUME 81 fL (82-100); MONOCYTES # (AUTO) 0.3 K/uL (0.1-1.30); MONOCYTES % (AUTO) 2.1 % (2.0-12.0); NEUTROPHILS # (AUTO) 12.8 K/uL (1.8-8.9); NEUTROPHILS % (AUTO) 83.2 % (43.0-81.0); PLATELET COUNT (AUTO) 120 K/uL (150-450); RED BLOOD CELL COUNT(AUTO) 2.97 MIL/uL (4.0-5.2); RED CELL DISTRIBUTION WIDTH 18.3 % (11.5-15.0); WHITE BLOOD COUNT (AUTO) 15.4 K/uL (4.3-11.0)
[2024-08-10 12:00] VITALS: BP 124/83; TEMP 99; O2SAT 100
[2024-08-10] MEDS: SEVELAMER CARBONATE 800 MG POWD.PACK GT SCH (13:42)
[2024-08-10] MEDS: METRONIDAZOLE 500 MG TABLET GT SCH (13:42)
[2024-08-10 16:00] VITALS: BP 116/80; TEMP 98.4; O2SAT 100
[2024-08-10 20:00] VITALS: BP 103/75; TEMP 98.1; O2SAT 100
[2024-08-11] VITALS: BP 98/76; TEMP 98.1; O2SAT 100
[2024-08-11 04:00] VITALS: BP 101/69; TEMP 97.9; O2SAT 100
[2024-08-11 07:57] LABS: BASOPHILS # (AUTO) 0.1 K/uL (0.0-0.2); BASOPHILS % (AUTO) 0.4 % (0.0-2.0); EOSINOPHILS % (AUTO) 0.1 % (0.0-6.0); HEMATOCRIT 24 % (33-45); HEMOGLOBIN 7.7 g/dL (11.5-14.8); LYMPHOCYTES # (AUTO) 3.7 K/uL (0.8-4.8); LYMPHOCYTES % (AUTO) 25.2 % (20.0-44.0); MEAN CORPUSCULAR HEMOGLOBIN 26 PG (26.0-33.0); MEAN CORPUSCULAR HGB CONC 32 g/dl (31.0-36.0); MEAN CORPUSCULAR VOLUME 82 fL (82-100); MONOCYTES # (AUTO) 0.2 K/uL (0.1-1.30); MONOCYTES % (AUTO) 1.4 % (2.0-12.0); NEUTROPHILS # (AUTO) 10.6 K/uL (1.8-8.9); NEUTROPHILS % (AUTO) 72.9 % (43.0-81.0); PLATELET COUNT (AUTO) 118 K/uL (150-450); RED BLOOD CELL COUNT(AUTO) 2.91 MIL/uL (4.0-5.2); WHITE BLOOD COUNT (AUTO) 14.5 K/uL (4.3-11.0)
[2024-08-11 08:01] VITALS: BP 115/99; TEMP 97.6; O2SAT 100
[2024-08-11 08:17] LABS: CALCIUM, SERUM 7.6 mg/dL (8.5-10.1); CREATININE 2.6 mg/dL (0.6-1.3); MAGNESIUM 1.9 mg/dL (1.8-2.4); PHOSPHORUS 7.4 mg/dL (2.5-4.9)
[2024-08-11] MEDS ORDERED: VANCOMYCIN 1 GM in IV D5W 250 ML IV SCH (10:00)
[2024-08-11] MEDS ORDERED: POTASSIUM CHLORIDE 20 MEQ POWDER PACKET GT ONE (10:00)
[2024-08-11 10:15] LABS: BAND % (MANUAL) 3 % (0.0-5.0); LYMPHOCYTES % (MANUAL) 3 % (16-48); MONOCYTES % (MANUAL) 3 % (0-11.0); MYELOCYTES % 1 % (0-0); NEUTROPHILS % (MANUAL) 90 (42-76); PLATELET ESTIMATE DECREASED
[2024-08-11 10:16] LABS: ANISOCYTOSIS 1+; TARGET CELLS 1+
[2024-08-11] MEDS: POTASSIUM CHLORIDE 20 MEQ POWDER PACKET GT SCH (10:39)
[2024-08-11] MEDS ORDERED: DIATR MEGLU/DIATRIZOATE SODIUM 30 ML BOTTLE (GASTROGRAPHIN) ONE (11:34)
[2024-08-11 12:01] VITALS: BP 101/80; TEMP 97.9; O2SAT 100
[2024-08-11 16:00] VITALS: BP 98/75; TEMP 97.5; O2SAT 100
[2024-08-11 20:00] VITALS: BP 110/85; TEMP 97.3; O2SAT 98
[2024-08-12] VITALS: BP 121/73; TEMP 97.5; O2SAT 100
[2024-08-12 04:00] VITALS: BP 99/83; TEMP 97.5; O2SAT 98
[2024-08-12 08:00] VITALS: BP 91/60; TEMP 97.5; O2SAT 100
[2024-08-12] MEDS: POTASSIUM CHLORIDE 20 MEQ POWDER PACKET GT SCH (10:30)
[2024-08-12] MEDS ORDERED: DIATR MEGLU/DIATRIZOATE SODIUM 30 ML BOTTLE (GASTROGRAPHIN) ONE (10:34)
[2024-08-12 12:00] VITALS: BP 91/60; TEMP 97.5; O2SAT 100
[2024-08-12] MEDS: POTASSIUM CHLORIDE 10 MEQ/50 ML PREMIXED IVPB FOR PERIPHERAL LINE IV SCH (12:17)
[2024-08-12 16:00] VITALS: BP 98/54; TEMP 94.7; O2SAT 100
[2024-08-12 20:00] VITALS: BP 97/85; TEMP 95.2; O2SAT 100
[2024-08-12] MEDS: MEROPENEM 1 G in IV NS 0.9% 100 ML IV SCH (21:30)
[2024-08-13] VITALS: BP_SYST 97; BP_DIAS 63; BP_DIAS 85; TEMP 95.2; TEMP 97.5; O2SAT 100
[2024-08-13 04:00] VITALS: BP 96/73; TEMP 98.5; O2SAT 100
[2024-08-13 07:30] LABS: BASOPHILS # (AUTO) 0.1 K/uL (0.0-0.2); BASOPHILS % (AUTO) 0.6 % (0.0-2.0); HEMATOCRIT 24 % (33-45); HEMOGLOBIN 7.6 g/dL (11.5-14.8); LYMPHOCYTES # (AUTO) 2.9 K/uL (0.8-4.8); LYMPHOCYTES % (AUTO) 24.5 % (20.0-44.0); MEAN CORPUSCULAR HEMOGLOBIN 27 PG (26.0-33.0); MEAN CORPUSCULAR HGB CONC 32 g/dl (31.0-36.0); MEAN CORPUSCULAR VOLUME 83 fL (82-100); MONOCYTES # (AUTO) 0.3 K/uL (0.1-1.30); MONOCYTES % (AUTO) 2.4 % (2.0-12.0); NEUTROPHILS # (AUTO) 8.7 K/uL (1.8-8.9); NEUTROPHILS % (AUTO) 72.5 % (43.0-81.0); PLATELET COUNT (AUTO) 124 K/uL (150-450); RED BLOOD CELL COUNT(AUTO) 2.84 MIL/uL (4.0-5.2); RED CELL DISTRIBUTION WIDTH 18.5 % (11.5-15.0)
[2024-08-13 08:00] VITALS: BP 105/79; TEMP 97.5; O2SAT 100
[2024-08-13 08:06] LABS: CREATININE 2.5 mg/dL (0.6-1.3); MAGNESIUM 1.7 mg/dL (1.8-2.4); PHOSPHORUS 7.7 mg/dL (2.5-4.9); POTASSIUM 3.6 mmol/L (3.5-5.1)
[2024-08-13] MEDS ORDERED: Magnesium 1GM/D5W 100ML PREMIX 100 ML IV SCH (10:30)
[2024-08-13 12:00] VITALS: BP 108/68; TEMP 98; O2SAT 100
[2024-08-13] MEDS: LEVETIRACETAM (500MG) 500 MG in IV NS 0.9% 100 ML IV SCH (12:20)
[2024-08-13] MEDS: Magnesium 1GM/D5W 100ML PREMIX 100 ML IV SCH (14:25)
[2024-08-13 16:00] VITALS: BP 106/80; TEMP 97.8; O2SAT 100
[2024-08-13 20:00] VITALS: BP_SYST 107; BP_SYST 92; BP_DIAS 72; BP_DIAS 75; TEMP 97.3; TEMP 97.8; O2SAT 100
[2024-08-14] VITALS: BP 102/69; TEMP 98.2; O2SAT 100
[2024-08-14 04:00] VITALS: BP 90/60; TEMP 97.5; O2SAT 100
[2024-08-14 08:00] VITALS: BP 112/69; TEMP 97.9; O2SAT 100
[2024-08-14 08:03] LABS: BASOPHILS % (AUTO) 0.2 % (0.0-2.0); HEMATOCRIT 23 % (33-45); LYMPHOCYTES # (AUTO) 0.9 K/uL (0.8-4.8); LYMPHOCYTES % (AUTO) 5.1 % (20.0-44.0); MEAN CORPUSCULAR HEMOGLOBIN 26 PG (26.0-33.0); MEAN CORPUSCULAR HGB CONC 31 g/dl (31.0-36.0); MEAN CORPUSCULAR VOLUME 83 fL (82-100); MONOCYTES # (AUTO) 0.4 K/uL (0.1-1.30); MONOCYTES % (AUTO) 2.2 % (2.0-12.0); NEUTROPHILS # (AUTO) 16.5 K/uL (1.8-8.9); NEUTROPHILS % (AUTO) 92.5 % (43.0-81.0); PLATELET COUNT (AUTO) 108 K/uL (150-450); RED BLOOD CELL COUNT(AUTO) 2.73 MIL/uL (4.0-5.2); RED CELL DISTRIBUTION WIDTH 18.3 % (11.5-15.0); WHITE BLOOD COUNT (AUTO) 17.9 K/uL (4.3-11.0)
[2024-08-14 08:10] LABS: CALCIUM, SERUM 7.6 mg/dL (8.5-10.1); CREATININE 2.5 mg/dL (0.6-1.3); MAGNESIUM 2.1 mg/dL (1.8-2.4); PHOSPHORUS 7.7 mg/dL (2.5-4.9)
[2024-08-14] MEDS ORDERED: POTASSIUM CHLORIDE 20 MEQ POWDER PACKET GT SCH (09:30)
[2024-08-14] MEDS ORDERED: POTASSIUM CHLORIDE 10 MEQ/50 ML PREMIXED IVPB FOR PERIPHERAL LINE IV SCH (11:00)
[2024-08-14] MEDS: POTASSIUM CL. PREMIX PERIPHER. 50 ML IV SCH (11:00)
[2024-08-14] MEDS: METRONIDAZOLE 500MG/ NS 100ML 500 MG in PREMIX 1 EA IV SCH (11:02)
[2024-08-14 12:00] VITALS: BP 107/68; TEMP 97.6; O2SAT 100
[2024-08-14 16:00] VITALS: BP 96/71; TEMP 97.6; O2SAT 99
[2024-08-14 20:00] VITALS: BP 101/70; TEMP 97.1; O2SAT 100
[2024-08-14] MEDS: FUROSEMIDE 20 MG/2 ML VIAL IV SCH (21:15)
[2024-08-15] VITALS (13 sets, daily range): BP systolic 83–100; BP diastolic 56–80; TEMP 96.3–98.1; O2SAT 99–100
[2024-08-15 08:35] LABS: CALCIUM, SERUM 7.9 mg/dL (8.5-10.1); CREATININE 2.5 mg/dL (0.6-1.3); POTASSIUM 3.3 mmol/L (3.5-5.1)
[2024-08-15 08:42] LABS: BASOPHILS # (AUTO) 0.1 K/uL (0.0-0.2); BASOPHILS % (AUTO) 0.3 % (0.0-2.0); EOSINOPHILS % (AUTO) 0.1 % (0.0-6.0); HEMATOCRIT 21 % (33-45); INR 1.74 (0.91-1.10); LYMPHOCYTES # (AUTO) 6.4 K/uL (0.8-4.8); LYMPHOCYTES % (AUTO) 27.5 % (20.0-44.0); MEAN CORPUSCULAR HEMOGLOBIN 27 PG (26.0-33.0); MEAN CORPUSCULAR HGB CONC 32 g/dl (31.0-36.0); MEAN CORPUSCULAR VOLUME 84 fL (82-100); MONOCYTES # (AUTO) 0.3 K/uL (0.1-1.30); MONOCYTES % (AUTO) 1.5 % (2.0-12.0); NEUTROPHILS # (AUTO) 16.4 K/uL (1.8-8.9); NEUTROPHILS % (AUTO) 70.6 % (43.0-81.0); PARTIAL THROMBOPLASTIN TIME 48.4 SEC (24.3-34.3); PLATELET COUNT (AUTO) 105 K/uL (150-450); PROTHROMBIN TIME 17.8 SECS (9.2-11.1); RED BLOOD CELL COUNT(AUTO) 2.48 MIL/uL (4.0-5.2); RED CELL DISTRIBUTION WIDTH 18.8 % (11.5-15.0); WHITE BLOOD COUNT (AUTO) 23.2 K/uL (4.3-11.0)
[2024-08-15 09:07] LABS: PHOSPHORUS 8.2 mg/dL (2.5-4.9)
[2024-08-15 09:08] LABS: HEMOGLOBIN 6.6 g/dL (11.5-14.8)
[2024-08-15 12:37] LABS: BAND % (MANUAL) 2 % (0.0-5.0); LYMPHOCYTES % (MANUAL) 3 % (16-48); NEUTROPHILS % (MANUAL) 95 (42-76); PLATELET ESTIMATE DECREASED
[2024-08-15 12:38] LABS: ANISOCYTOSIS 1+
[2024-08-15 21:34] LABS: HEMOGLOBIN 7.6 g/dL (11.5-14.8)
[2024-08-16] VITALS: BP 98/65; TEMP 97.5; O2SAT 100
[2024-08-16 04:00] VITALS: BP 90/70; TEMP 99; O2SAT 100
[2024-08-16] MEDS: SEVELAMER CARBONATE 800 MG POWD.PACK GT SCH (07:53)
[2024-08-16 08:00] VITALS: BP 80/54; TEMP 99.1; O2SAT 99
[2024-08-16 08:22] LABS: CALCIUM, SERUM 7.2 mg/dL (8.5-10.1); CREATININE 2.6 mg/dL (0.6-1.3); PHOSPHORUS 7.3 mg/dL (2.5-4.9); POTASSIUM 3.1 mmol/L (3.5-5.1)
[2024-08-16 08:23] LABS: BASOPHILS # (AUTO) 0.1 K/uL (0.0-0.2); BASOPHILS % (AUTO) 0.6 % (0.0-2.0); EOSINOPHILS % (AUTO) 0.1 % (0.0-6.0); HEMATOCRIT 25 % (33-45); HEMOGLOBIN 7.8 g/dL (11.5-14.8); LYMPHOCYTES % (AUTO) 9.8 % (20.0-44.0); MEAN CORPUSCULAR HEMOGLOBIN 27 PG (26.0-33.0); MEAN CORPUSCULAR HGB CONC 32 g/dl (31.0-36.0); MEAN CORPUSCULAR VOLUME 87 fL (82-100); MONOCYTES # (AUTO) 0.3 K/uL (0.1-1.30); MONOCYTES % (AUTO) 2.7 % (2.0-12.0); NEUTROPHILS # (AUTO) 8.5 K/uL (1.8-8.9); NEUTROPHILS % (AUTO) 86.8 % (43.0-81.0); PLATELET COUNT (AUTO) 118 K/uL (150-450); RED BLOOD CELL COUNT(AUTO) 2.84 MIL/uL (4.0-5.2); WHITE BLOOD COUNT (AUTO) 9.8 K/uL (4.3-11.0)
[2024-08-16 12:00] VITALS: BP 81/55; TEMP 98.4; O2SAT 99
[2024-08-16] MEDS ORDERED: POTASSIUM PHOSPHATE MM 5 MMOL in IV NS 0.9% 100 ML IV SCH (14:00)
[2024-08-16 16:00] VITALS: BP 93/63; TEMP 97.5; O2SAT 99
[2024-08-16] MEDS: POTASSIUM CHLORIDE 20 MEQ POWDER PACKET GT ONE (17:27)
[2024-08-16 20:00] VITALS: BP 102/62; TEMP 96.8; O2SAT 99
[2024-08-17] VITALS: BP 104/80; TEMP 96.8; O2SAT 100
[2024-08-17 04:00] VITALS: BP 101/64; TEMP 96.8; O2SAT 100
[2024-08-17 08:00] VITALS: BP 120/61; TEMP 97.1; O2SAT 100
[2024-08-17] MEDS: LEVETIRACETAM SOL (5 ML) 100 MG/ML UDC GT SCH (10:36)
[2024-08-17 12:00] VITALS: BP 118/54; TEMP 97.3; O2SAT 100
[2024-08-17] MEDS: METRONIDAZOLE 500 MG TABLET GT SCH (12:55)
[2024-08-17 15:04] LABS: CALCIUM, SERUM 7.3 mg/dL (8.5-10.1); CREATININE 2.6 mg/dL (0.6-1.3); POTASSIUM 3.4 mmol/L (3.5-5.1)
[2024-08-17 16:00] VITALS: BP 120/60; TEMP 97; O2SAT 100
[2024-08-17 17:05] LABS: BASOPHILS # (AUTO) 0.1 K/uL (0.0-0.2); BASOPHILS % (AUTO) 0.5 % (0.0-2.0); EOSINOPHILS % (AUTO) 0.1 % (0.0-6.0); HEMATOCRIT 24 % (33-45); HEMOGLOBIN 7.4 g/dL (11.5-14.8); LYMPHOCYTES # (AUTO) 2.2 K/uL (0.8-4.8); LYMPHOCYTES % (AUTO) 11.5 % (20.0-44.0); MEAN CORPUSCULAR HEMOGLOBIN 28 PG (26.0-33.0); MEAN CORPUSCULAR HGB CONC 31 g/dl (31.0-36.0); MEAN CORPUSCULAR VOLUME 91 fL (82-100); MONOCYTES # (AUTO) 0.4 K/uL (0.1-1.30); MONOCYTES % (AUTO) 2.2 % (2.0-12.0); NEUTROPHILS # (AUTO) 16.6 K/uL (1.8-8.9); NEUTROPHILS % (AUTO) 85.7 % (43.0-81.0); PLATELET COUNT (AUTO) 78 K/uL (150-450); RED BLOOD CELL COUNT(AUTO) 2.66 MIL/uL (4.0-5.2); RED CELL DISTRIBUTION WIDTH 19.3 % (11.5-15.0); WHITE BLOOD COUNT (AUTO) 19.4 K/uL (4.3-11.0)
[2024-08-17 18:09] LABS: BAND % (MANUAL) 3 % (0.0-5.0); LYMPHOCYTES % (MANUAL) 2 % (16-48); MYELOCYTES % 3 % (0-0); NEUTROPHILS % (MANUAL) 92 (42-76)
[2024-08-17 18:10] LABS: PLATELET ESTIMATE DECREASED
[2024-08-17 18:11] LABS: ANISOCYTOSIS 1+; TARGET CELLS 1+
[2024-08-17 20:00] VITALS: BP 85/65; TEMP 97.7; O2SAT 100
[2024-08-17] MEDS ORDERED: POTASSIUM CHLORIDE 20 MEQ TAB.PRT.SR PO ONE (20:30)
[2024-08-17] MEDS: POTASSIUM CHLORIDE 20 MEQ POWDER PACKET GT ONE (21:05)
[2024-08-18] VITALS: BP 95/73; TEMP 94.3; O2SAT 100
[2024-08-18 04:00] VITALS: BP 93/72; TEMP 96.2; O2SAT 97
[2024-08-18 08:00] VITALS: BP 90/69; TEMP 97.3; TEMP 98.4; O2SAT 94
[2024-08-18 09:06] LABS: CALCIUM, SERUM 7.5 mg/dL (8.5-10.1); CREATININE 2.6 mg/dL (0.6-1.3); MAGNESIUM 2.1 mg/dL (1.8-2.4); PHOSPHORUS 6.3 mg/dL (2.5-4.9)
[2024-08-18 09:17] LABS: BASOPHILS % (AUTO) 0.1 % (0.0-2.0); EOSINOPHILS % (AUTO) 0.1 % (0.0-6.0); HEMATOCRIT 23 % (33-45); HEMOGLOBIN 7.1 g/dL (11.5-14.8); LYMPHOCYTES # (AUTO) 0.6 K/uL (0.8-4.8); LYMPHOCYTES % (AUTO) 2.9 % (20.0-44.0); MEAN CORPUSCULAR HEMOGLOBIN 27 PG (26.0-33.0); MEAN CORPUSCULAR HGB CONC 31 g/dl (31.0-36.0); MEAN CORPUSCULAR VOLUME 87 fL (82-100); MONOCYTES # (AUTO) 0.3 K/uL (0.1-1.30); MONOCYTES % (AUTO) 1.6 % (2.0-12.0); NEUTROPHILS # (AUTO) 18.8 K/uL (1.8-8.9); NEUTROPHILS % (AUTO) 95.3 % (43.0-81.0); PLATELET COUNT (AUTO) 76 K/uL (150-450); RED BLOOD CELL COUNT(AUTO) 2.65 MIL/uL (4.0-5.2); RED CELL DISTRIBUTION WIDTH 18.8 % (11.5-15.0); WHITE BLOOD COUNT (AUTO) 19.7 K/uL (4.3-11.0)
[2024-08-18] MEDS: Z GUARD REMEDY 4 OZ OINT TP PRN (10:50)
[2024-08-18 12:00] VITALS: BP 94/79; TEMP 97.3; O2SAT 100
[2024-08-18 12:43] LABS: BAND % (MANUAL) 1 % (0.0-5.0); LYMPHOCYTES % (MANUAL) 5 % (16-48); MONOCYTES % (MANUAL) 1 % (0-11.0); NEUTROPHILS % (MANUAL) 93 (42-76)
[2024-08-18 12:44] LABS: ANISOCYTOSIS 1+; PLATELET ESTIMATE DECREASED
[2024-08-18] MEDS: POTASSIUM CHLORIDE 20 MEQ POWDER PACKET GT SCH (13:39)
[2024-08-18 16:00] VITALS: BP 88/70; TEMP 97.3; O2SAT 100
[2024-08-18 20:00] VITALS: BP 100/72; TEMP 96.8; O2SAT 100
[2024-08-19] VITALS (41 sets, daily range): BP systolic 66–113; BP diastolic 49–84; TEMP 96.8–102; O2SAT 95–100
[2024-08-19 08:23] LABS: CALCIUM, SERUM 7.5 mg/dL (8.5-10.1); CREATININE 2.7 mg/dL (0.6-1.3); PHOSPHORUS 5.6 mg/dL (2.5-4.9); POTASSIUM 2.9 mmol/L (3.5-5.1)
[2024-08-19 08:59] LABS: BASOPHILS % (AUTO) 0.4 % (0.0-2.0); EOSINOPHILS % (AUTO) 0.2 % (0.0-6.0); HEMATOCRIT 21 % (33-45); LYMPHOCYTES # (AUTO) 1.1 K/uL (0.8-4.8); LYMPHOCYTES % (AUTO) 8.7 % (20.0-44.0); MEAN CORPUSCULAR HEMOGLOBIN 28 PG (26.0-33.0); MEAN CORPUSCULAR HGB CONC 31 g/dl (31.0-36.0); MEAN CORPUSCULAR VOLUME 89 fL (82-100); MONOCYTES # (AUTO) 0.3 K/uL (0.1-1.30); MONOCYTES % (AUTO) 2.5 % (2.0-12.0); NEUTROPHILS # (AUTO) 11.5 K/uL (1.8-8.9); NEUTROPHILS % (AUTO) 88.2 % (43.0-81.0); PLATELET COUNT (AUTO) 69 K/uL (150-450); RED BLOOD CELL COUNT(AUTO) 2.31 MIL/uL (4.0-5.2); RED CELL DISTRIBUTION WIDTH 18.8 % (11.5-15.0)
[2024-08-19] MEDS: FUROSEMIDE 20 MG/2 ML VIAL IV SCH (09:08)
[2024-08-19 09:12] LABS: HEMOGLOBIN 6.4 g/dL (11.5-14.8)
[2024-08-19 12:16] LABS: ABG OXYGEN SATURATION 95.2 % (94.0-98.0); ABG PCO2 20.7 mmHg (32.0-45.0); ABG PH 7.324 (7.350-7.450); ABG PO2 86.4 mmHg (83.0-108.0); ABG TOTAL HEMOGLOBIN 7.7 G/dL (12.0-16.0); COHb 0.2 % (0.5-1.5); MetHb 0.8 % (0.0-1.5); O2Hb 94.2 % (94.0-97.0); PEEP,BG 0 cm H2O; SITE, ABG RIGHT RADIAL; VT, ABG 500 mL
[2024-08-19] MEDS: ACETAMINOPHEN 650 MG/20.3 ML UDC GT PRN (12:42)
[2024-08-19] MEDS: SODIUM BICARBONATE SYR 50 MEQ/50 ML DISP.SYRIN IV ONE (12:54)
[2024-08-19] MEDS ORDERED: SODIUM BICARBONATE SYR 150 MEQ in IV D5W 1,000 ML IV SCH (13:00)
[2024-08-19] MEDS ORDERED: Sodium Bicarbonate 150 MEQ in IV D5W 1,000 ML IV SCH (13:00)
[2024-08-19] MEDS: SODIUM BICARBONATE SYR 150 MEQ in IV D5W 1,000 ML IV SCH (13:00)
[2024-08-19] MEDS: Sodium Bicarbonate 150 MEQ in IV D5W 1,000 ML IV SCH (13:41)
[2024-08-19 14:10] LABS: ANISOCYTOSIS 1+; BAND % (MANUAL) 1 % (0.0-5.0); EOSINOPHILS % (MANUAL) 1 % (0-4); LYMPHOCYTES % (MANUAL) 7 % (16-48); METAMYELOCYTES % 1 % (0-0); MONOCYTES % (MANUAL) 2 % (0-11.0); MYELOCYTES % 1 % (0-0); NEUTROPHILS % (MANUAL) 87 (42-76); PLATELET ESTIMATE DECREASED
[2024-08-19 14:11] LABS: TARGET CELLS 1+
[2024-08-19] MEDS ORDERED: MICAFUNGIN SODIUM 50 MG in IV NS 0.9% 100 ML IV SCH (15:00)
[2024-08-19 17:58] LABS: ABG BASE EXCESS -10.7 mmol/L (-2.0-3.0); ABG OXYGEN SATURATION 97.6 % (94.0-98.0); ABG PCO2 27.5 mmHg (32.0-45.0); ABG PO2 117.9 mmHg (83.0-108.0); ABG TOTAL HEMOGLOBIN 7.4 G/dL (12.0-16.0); COHb 0.3 % (0.5-1.5); MetHb 0.8 % (0.0-1.5); O2Hb 96.5 % (94.0-97.0); SITE, ABG RIGHT RADIAL; VT, ABG 500 mL
[2024-08-19 18:56] LABS: APPEARANCE,URINE SLIGHTLY CLOUDY (CLEAR); BILIRUBIN,URINE 1+ (NEGATIVE); BLOOD, URINE NEGATIVE Ery/uL (NEGATIVE); COLOR,URINE DARK YELLOW (YELLOW); KETONES,URINE NEGATIVE (NEGATIVE); LEUKOCYTE ESTERASE ,URINE TRACE (NEGATIVE); NITRITE, URINE POSITIVE (NEGATIVE); PH,URINE 5.5 (5.0-8.0); PROTEIN,URINE 1+ mg/dl (NEGATIVE); UGLUCOSE NEGATIVE (NEGATIVE); UROBILINOGEN,URINE 0.2 EU/dL (0.2)
[2024-08-19 19:15] LABS: BACTERIA,URINE Moderate /HPF (None Seen); SQUAMOUS EPITHELIAL CELL,UR Few /HPF (None Seen); YEAST,URINE Many /HPF (None Seen)
[2024-08-19 19:16] LABS: ADD URINE CULTURE YES; RBC,URINE 0-2 /HPF (0-2)
[2024-08-19 19:17] LABS: CALCIUM OXALATE CRYSTALS,UR Rare /HPF (None Seen); URINE AMORPHOUS URATE Moderate /HPF (None Seen)
[2024-08-19] MEDS: VANCOMYCIN 1 GM in IV D5W 250 ML IV SCH (20:52)
[2024-08-19] MEDS: MICAFUNGIN SODIUM 100 MG in IV NS 0.9% 100 ML IV SCH (22:52)
[2024-08-20] VITALS (70 sets, daily range): BP systolic 77–131; BP diastolic 26–99; TEMP 96.5–97.1; O2SAT 96–100
[2024-08-20 06:22] LABS: BASOPHILS % (AUTO) 0.2 % (0.0-2.0); EOSINOPHILS % (AUTO) 0.2 % (0.0-6.0); HEMATOCRIT 27 % (33-45); HEMOGLOBIN 8.5 g/dL (11.5-14.8); LYMPHOCYTES # (AUTO) 0.9 K/uL (0.8-4.8); LYMPHOCYTES % (AUTO) 7.2 % (20.0-44.0); MEAN CORPUSCULAR HEMOGLOBIN 28 PG (26.0-33.0); MEAN CORPUSCULAR HGB CONC 32 g/dl (31.0-36.0); MEAN CORPUSCULAR VOLUME 87 fL (82-100); MONOCYTES # (AUTO) 0.2 K/uL (0.1-1.30); MONOCYTES % (AUTO) 1.9 % (2.0-12.0); NEUTROPHILS # (AUTO) 11.1 K/uL (1.8-8.9); NEUTROPHILS % (AUTO) 90.5 % (43.0-81.0); RED BLOOD CELL COUNT(AUTO) 3.06 MIL/uL (4.0-5.2); RED CELL DISTRIBUTION WIDTH 17.8 % (11.5-15.0); WHITE BLOOD COUNT (AUTO) 12.2 K/uL (4.3-11.0)
[2024-08-20 06:32] LABS: CALCIUM, SERUM 7.4 mg/dL (8.5-10.1); CREATININE 2.7 mg/dL (0.6-1.3); PHOSPHORUS 5.4 mg/dL (2.5-4.9)
[2024-08-20 06:37] LABS: PLATELET COUNT (AUTO) 44 K/uL (150-450)
[2024-08-20 07:23] LABS: POTASSIUM 2.3 mmol/L (3.5-5.1)
[2024-08-20 08:32] LABS: ABG BASE EXCESS -6.9 mmol/L (-2.0-3.0); ABG OXYGEN SATURATION 97.7 % (94.0-98.0); ABG PCO2 27.3 mmHg (32.0-45.0); ABG PH 7.405 (7.350-7.450); ABG PO2 114.8 mmHg (83.0-108.0); ABG TOTAL HEMOGLOBIN 9.2 G/dL (12.0-16.0); COHb 0.3 % (0.5-1.5); MetHb 0.4 % (0.0-1.5); PEEP,BG 0 cm H2O; SITE, ABG RIGHT RADIAL; VT, ABG 500 mL
[2024-08-20 09:17] LABS: BAND % (MANUAL) 4 % (0.0-5.0); BASOPHILS % (MANUAL) 0 % (0.0-2.0); EOSINOPHILS % (MANUAL) 0 % (0-4); LYMPHOCYTES % (MANUAL) 6 % (16-48); MONOCYTES % (MANUAL) 2 % (0-11.0); NEUTROPHILS % (MANUAL) 88 (42-76); PLATELET ESTIMATE DECREASED
[2024-08-20 09:18] LABS: ANISOCYTOSIS 1+; HYPOCHROMASIA 1+; TARGET CELLS 1+
[2024-08-20 09:52] LABS: BASOPHILS % (AUTO) 0.5 % (0.0-2.0); EOSINOPHILS % (AUTO) 0.1 % (0.0-6.0); HEMATOCRIT 26 % (33-45); HEMOGLOBIN 8.5 g/dL (11.5-14.8); LYMPHOCYTES # (AUTO) 0.6 K/uL (0.8-4.8); LYMPHOCYTES % (AUTO) 6.2 % (20.0-44.0); MEAN CORPUSCULAR HEMOGLOBIN 28 PG (26.0-33.0); MEAN CORPUSCULAR HGB CONC 33 g/dl (31.0-36.0); MEAN CORPUSCULAR VOLUME 86 fL (82-100); MONOCYTES # (AUTO) 0.2 K/uL (0.1-1.30); MONOCYTES % (AUTO) 1.8 % (2.0-12.0); NEUTROPHILS # (AUTO) 8.9 K/uL (1.8-8.9); NEUTROPHILS % (AUTO) 91.4 % (43.0-81.0); RED CELL DISTRIBUTION WIDTH 17.7 % (11.5-15.0); WHITE BLOOD COUNT (AUTO) 9.7 K/uL (4.3-11.0)
[2024-08-20 10:02] LABS: PLATELET COUNT (AUTO) 40 K/uL (150-450)
[2024-08-20 10:14] LABS: INR 1.9 (0.91-1.10); PARTIAL THROMBOPLASTIN TIME 48.5 SEC (24.3-34.3); PROTHROMBIN TIME 19.3 SECS (9.2-11.1)
[2024-08-20 10:18] LABS: D-DIMER 23.65 mg/L(FEU (0.17-0.50)
[2024-08-20] MEDS: POTASSIUM CL. PREMIX PERIPHER. 50 ML IV ONE (10:24)
[2024-08-20] MEDS: POTASSIUM CL. PREMIX PERIPHER. 50 ML IV SCH ×2 (12:20→19:46)
[2024-08-20] MEDS: IV D5W 1,000 ML IV SCH (13:53)
[2024-08-20 18:30] LABS: ALKALINE PHOSPHATASE 489 U/L (46-116); ASPARTATE AMINOTRANSFERASE 71 U/L (15-37); BILIRUBIN,TOTAL 0.6 mg/dL (0.2-1.0); CALCIUM, SERUM 7.8 mg/dL (8.5-10.1); CARBON DIOXIDE 21 mmol/L (21-32); CHLORIDE 111 mmol/L (98-107); CREATININE 2.6 mg/dL (0.6-1.3); GLUCOSE 100 mg/dL (74-106); SODIUM SERUM 146 mmol/L (136-145); TOTAL PROTEIN, SERUM 4.4 g/dL (6.4-8.2); UREA NITROGEN, BLOOD 78 mg/dL (7-18)
[2024-08-20 18:39] LABS: ALANINE AMINOTRANSFERASE < 6 U/L (12-78)
[2024-08-20 18:51] LABS: ALBUMIN 0.8 g/dL (3.4-5.0)
[2024-08-20 18:52] LABS: POTASSIUM 2.5 mmol/L (3.5-5.1)
[2024-08-21] VITALS (81 sets, daily range): BP systolic 31–138; BP diastolic 11–107; TEMP 96.9–97.8; O2SAT 71–100
[2024-08-21] MEDS: POTASSIUM CL. PREMIX PERIPHER. 50 ML IV SCH ×2 (00:21→10:00)
[2024-08-21] MEDS: VANCOMYCIN 1 GM in IV D5W 250 ML IV SCH (04:00)
[2024-08-21] MEDS: POTASSIUM CL. PREMIX PERIPHER. 50 ML ONE (04:36)
[2024-08-21 04:41] LABS: BASOPHILS % (AUTO) 0.3 % (0.0-2.0); EOSINOPHILS # (AUTO) 0.1 K/uL (0.0-0.7); EOSINOPHILS % (AUTO) 0.7 % (0.0-6.0); HEMATOCRIT 31 % (33-45); HEMOGLOBIN 9.9 g/dL (11.5-14.8); LYMPHOCYTES # (AUTO) 1.3 K/uL (0.8-4.8); MEAN CORPUSCULAR HEMOGLOBIN 28 PG (26.0-33.0); MEAN CORPUSCULAR HGB CONC 32 g/dl (31.0-36.0); MEAN CORPUSCULAR VOLUME 87 fL (82-100); MONOCYTES # (AUTO) 0.2 K/uL (0.1-1.30); MONOCYTES % (AUTO) 1.8 % (2.0-12.0); NEUTROPHILS % (AUTO) 87.2 % (43.0-81.0); RED BLOOD CELL COUNT(AUTO) 3.58 MIL/uL (4.0-5.2); RED CELL DISTRIBUTION WIDTH 18.2 % (11.5-15.0); WHITE BLOOD COUNT (AUTO) 12.6 K/uL (4.3-11.0)
[2024-08-21 05:14] LABS: CALCIUM, SERUM 8.1 mg/dL (8.5-10.1); CREATININE 2.6 mg/dL (0.6-1.3); MAGNESIUM 2.1 mg/dL (1.8-2.4); PHOSPHORUS 7.6 mg/dL (2.5-4.9); POTASSIUM 4.2 mmol/L (3.5-5.1)
[2024-08-21] MEDS: NOREPINEPHRINE 8 MG in IV D5W 242 ML IV PRN (05:17)
[2024-08-21 05:32] LABS: PLATELET COUNT (AUTO) 58 K/uL (150-450)
[2024-08-21 05:49] LABS: BAND % (MANUAL) 2 % (0.0-5.0); LYMPHOCYTES % (MANUAL) 10 % (16-48); MONOCYTES % (MANUAL) 2 % (0-11.0); NEUTROPHILS % (MANUAL) 86 (42-76); PLATELET ESTIMATE DECREASED
[2024-08-21 05:50] LABS: ANISOCYTOSIS 1+; HYPOCHROMASIA 1+
[2024-08-21] MEDS ORDERED: Sodium Bicarbonate 150 MEQ in IV D5W 1,000 ML IV SCH ×3 (08:42→09:00)
[2024-08-21] MEDS ORDERED: Sodium Bicarbonate 100 MEQ in IV D5W 1,000 ML IV SCH (08:42)
[2024-08-21] MEDS: METRONIDAZOLE 500MG/ NS 100ML 500 MG in PREMIX 1 EA IV SCH ×2 (11:00→15:01)
[2024-08-21] MEDS: LEVETIRACETAM (500MG) 500 MG in IV NS 0.9% 100 ML IV SCH (12:00)
[2024-08-21 17:27] LABS: CALCIUM, SERUM 7.8 mg/dL (8.5-10.1); CREATININE 2.6 mg/dL (0.6-1.3); POTASSIUM 4.2 mmol/L (3.5-5.1)
[2024-08-21 18:53] LABS: BASOPHILS # (AUTO) 0.1 K/uL (0.0-0.2); BASOPHILS % (AUTO) 0.8 % (0.0-2.0); EOSINOPHILS % (AUTO) 0.3 % (0.0-6.0); HEMATOCRIT 31 % (33-45); HEMOGLOBIN 10.1 g/dL (11.5-14.8); LYMPHOCYTES # (AUTO) 1.9 K/uL (0.8-4.8); LYMPHOCYTES % (AUTO) 14.8 % (20.0-44.0); MEAN CORPUSCULAR HEMOGLOBIN 28 PG (26.0-33.0); MEAN CORPUSCULAR HGB CONC 33 g/dl (31.0-36.0); MEAN CORPUSCULAR VOLUME 87 fL (82-100); MONOCYTES # (AUTO) 0.2 K/uL (0.1-1.30); MONOCYTES % (AUTO) 1.5 % (2.0-12.0); NEUTROPHILS # (AUTO) 10.7 K/uL (1.8-8.9); NEUTROPHILS % (AUTO) 82.6 % (43.0-81.0); PLATELET COUNT (AUTO) 60 K/uL (150-450); RED BLOOD CELL COUNT(AUTO) 3.57 MIL/uL (4.0-5.2); WHITE BLOOD COUNT (AUTO) 12.9 K/uL (4.3-11.0)
[2024-08-21 20:06] LABS: BAND % (MANUAL) 5 % (0.0-5.0); BASOPHILS % (MANUAL) 0 % (0.0-2.0); EOSINOPHILS % (MANUAL) 1 % (0-4); LYMPHOCYTES % (MANUAL) 13 % (16-48); MONOCYTES % (MANUAL) 5 % (0-11.0); NEUTROPHILS % (MANUAL) 76 (42-76)
[2024-08-21 20:07] LABS: ANISOCYTOSIS 1+; PLATELET ESTIMATE DECREASED
[2024-08-21] MEDS: PHENYLEPHRINE 50 MG in IV NS 0.9% 245 ML IV PRN (20:46)
[2024-08-21] MEDS: PROPOFOL 100 ML IV PRN (21:59)
[2024-08-21 22:54] LABS: ABG BASE EXCESS -17.7 mmol/L (-2.0-3.0); ABG OXYGEN SATURATION 96.7 % (94.0-98.0); ABG PCO2 37.7 mmHg (32.0-45.0); ABG PH 7.089 (7.350-7.450); ABG PO2 110.2 mmHg (83.0-108.0); COHb 0.3 % (0.5-1.5); MetHb 0.6 % (0.0-1.5); O2Hb 95.8 % (94.0-97.0); PEEP,BG 0 cm H2O; SITE, ABG RIGHT RADIAL; VT, ABG 500 mL
[2024-08-21] MEDS ORDERED: Sodium Bicarbonate 150 MEQ in IV D5W 1,000 ML IV PRN (23:00)
[2024-08-21] MEDS: SODIUM BICARBONATE SYR 50 MEQ/50 ML DISP.SYRIN IV ONE (23:37)
[2024-08-21] MEDS: POTASSIUM CL. PREMIX PERIPHER. 50 ML IV ONE (23:50)
[2024-08-22] VITALS (94 sets, daily range): BP systolic 30–147; BP diastolic 11–77; TEMP 92.5–97.8; O2SAT 65–100
[2024-08-22 05:21] LABS: BASOPHILS % (AUTO) 0.4 % (0.0-2.0); EOSINOPHILS # (AUTO) 0.1 K/uL (0.0-0.7); EOSINOPHILS % (AUTO) 0.7 % (0.0-6.0); HEMATOCRIT 28 % (33-45); HEMOGLOBIN 8.9 g/dL (11.5-14.8); LYMPHOCYTES # (AUTO) 2.1 K/uL (0.8-4.8); LYMPHOCYTES % (AUTO) 17.6 % (20.0-44.0); MEAN CORPUSCULAR HEMOGLOBIN 28 PG (26.0-33.0); MEAN CORPUSCULAR HGB CONC 32 g/dl (31.0-36.0); MEAN CORPUSCULAR VOLUME 87 fL (82-100); MONOCYTES # (AUTO) 0.3 K/uL (0.1-1.30); MONOCYTES % (AUTO) 2.7 % (2.0-12.0); NEUTROPHILS # (AUTO) 9.3 K/uL (1.8-8.9); NEUTROPHILS % (AUTO) 78.6 % (43.0-81.0); RED BLOOD CELL COUNT(AUTO) 3.16 MIL/uL (4.0-5.2); RED CELL DISTRIBUTION WIDTH 18.7 % (11.5-15.0); WHITE BLOOD COUNT (AUTO) 11.8 K/uL (4.3-11.0)
[2024-08-22 05:33] LABS: CALCIUM, SERUM 7.9 mg/dL (8.5-10.1); CREATININE 2.6 mg/dL (0.6-1.3); POTASSIUM 3.7 mmol/L (3.5-5.1)
[2024-08-22 06:08] LABS: PLATELET COUNT (AUTO) 41 K/uL (150-450)
[2024-08-22 07:29] LABS: ANISOCYTOSIS 1+; BASOPHILS % (MANUAL) 0 % (0.0-2.0); EOSINOPHILS % (MANUAL) 0 % (0-4); LYMPHOCYTES % (MANUAL) 15 % (16-48); MONOCYTES % (MANUAL) 4 % (0-11.0); NEUTROPHILS % (MANUAL) 81 (42-76); PLATELET ESTIMATE DECREASED
[2024-08-22] MEDS: Sodium Bicarbonate 150 MEQ in IV D5W 1,000 ML IV SCH (08:06)
[2024-08-22] MEDS: SODIUM BICARBONATE SYR 50 MEQ/50 ML DISP.SYRIN IV ONE (09:53)
[2024-08-22] MEDS ORDERED: PHENYLEPHRINE 100 MG in IV NS 0.9% 240 ML IV PRN (13:30)
[2024-08-22] MEDS: NOREPINEPHRINE 32 MG in IV NS 0.9% 218 ML IV PRN (14:32)
[2024-08-22] MEDS: PHENYLEPHRINE 100 MG in IV NS 0.9% 240 ML IV PRN (15:42)
[2024-08-22 19:30] LABS: BASOPHILS # (AUTO) 0.1 K/uL (0.0-0.2); BASOPHILS % (AUTO) 0.6 % (0.0-2.0); EOSINOPHILS # (AUTO) 0.4 K/uL (0.0-0.7); EOSINOPHILS % (AUTO) 2.7 % (0.0-6.0); HEMATOCRIT 24 % (33-45); LYMPHOCYTES # (AUTO) 0.8 K/uL (0.8-4.8); LYMPHOCYTES % (AUTO) 5.2 % (20.0-44.0); MEAN CORPUSCULAR HEMOGLOBIN 29 PG (26.0-33.0); MEAN CORPUSCULAR HGB CONC 29 g/dl (31.0-36.0); MEAN CORPUSCULAR VOLUME 100 fL (82-100); MONOCYTES # (AUTO) 0.3 K/uL (0.1-1.30); MONOCYTES % (AUTO) 1.8 % (2.0-12.0); NEUTROPHILS # (AUTO) 13.2 K/uL (1.8-8.9); NEUTROPHILS % (AUTO) 89.7 % (43.0-81.0); RED BLOOD CELL COUNT(AUTO) 2.39 MIL/uL (4.0-5.2); RED CELL DISTRIBUTION WIDTH 20.7 % (11.5-15.0); WHITE BLOOD COUNT (AUTO) 14.7 K/uL (4.3-11.0)
[2024-08-22 19:31] LABS: CALCIUM, SERUM 7.4 mg/dL (8.5-10.1); POTASSIUM 4.6 mmol/L (3.5-5.1)
[2024-08-22 19:40] LABS: CREATININE 2.7 mg/dL (0.6-1.3)
[2024-08-22 20:10] LABS: HEMOGLOBIN 6.8 g/dL (11.5-14.8); PLATELET COUNT (AUTO) 32 K/uL (150-450)
[2024-08-22] MEDS: DEXTROSE 50%-WATER 50 ML DISP.SYRIN ONE (20:37)
[2024-08-22 21:00] LABS: LYMPHOCYTES % (MANUAL) 13 % (16-48); MONOCYTES % (MANUAL) 9 % (0-11.0); NEUTROPHILS % (MANUAL) 78 (42-76)
[2024-08-22 21:02] LABS: ANISOCYTOSIS 1+; HYPOCHROMASIA 1+; TARGET CELLS 1+
[2024-08-22] MEDS: DEXTROSE 50%-WATER 50 ML DISP.SYRIN IVP PRN (21:04)
[2024-08-22 21:07] LABS: ABG BASE EXCESS -25.1 mmol/L (-2.0-3.0); ABG OXYGEN SATURATION 57.1 % (94.0-98.0); ABG PCO2 39.7 mmHg (32.0-45.0); ABG PH 6.836 (7.350-7.450); ABG PO2 44.4 mmHg (83.0-108.0); COHb 0.3 % (0.5-1.5); MetHb 0.5 % (0.0-1.5); O2Hb 56.6 % (94.0-97.0); PEEP,BG 0 cm H2O; SITE, ABG RIGHT RADIAL; VT, ABG 525 mL
[2024-08-22 21:08] LABS: PLATELET ESTIMATE DECREASED
[2024-08-23] VITALS (55 sets, daily range): BP systolic 32–98; BP diastolic 12–44; TEMP 90–97.2; O2SAT 78–100
[2024-08-23 04:25] LABS: BASOPHILS # (AUTO) 0.1 K/uL (0.0-0.2); BASOPHILS % (AUTO) 0.4 % (0.0-2.0); EOSINOPHILS # (AUTO) 0.3 K/uL (0.0-0.7); EOSINOPHILS % (AUTO) 1.5 % (0.0-6.0); LYMPHOCYTES # (AUTO) 0.8 K/uL (0.8-4.8); LYMPHOCYTES % (AUTO) 4.9 % (20.0-44.0); MEAN CORPUSCULAR HEMOGLOBIN 29 PG (26.0-33.0); MEAN CORPUSCULAR HGB CONC 31 g/dl (31.0-36.0); MEAN CORPUSCULAR VOLUME 95 fL (82-100); MONOCYTES # (AUTO) 0.2 K/uL (0.1-1.30); MONOCYTES % (AUTO) 1.3 % (2.0-12.0); NEUTROPHILS # (AUTO) 14.9 K/uL (1.8-8.9); NEUTROPHILS % (AUTO) 91.9 % (43.0-81.0); RED CELL DISTRIBUTION WIDTH 20.6 % (11.5-15.0); WHITE BLOOD COUNT (AUTO) 16.2 K/uL (4.3-11.0)
[2024-08-23 04:26] LABS: RED BLOOD CELL COUNT(AUTO) 1.98 MIL/uL (4.0-5.2)
[2024-08-23 04:27] LABS: CALCIUM, SERUM 7.7 mg/dL (8.5-10.1); CREATININE 2.7 mg/dL (0.6-1.3); POTASSIUM 4.4 mmol/L (3.5-5.1)
[2024-08-23 04:29] LABS: HEMATOCRIT 19 % (33-45); HEMOGLOBIN 5.8 g/dL (11.5-14.8)
[2024-08-23 04:30] LABS: PLATELET COUNT (AUTO) 42 K/uL (150-450)
[2024-08-23 05:40] LABS: LYMPHOCYTES % (MANUAL) 6 % (16-48); MONOCYTES % (MANUAL) 2 % (0-11.0); NEUTROPHILS % (MANUAL) 92 (42-76)
[2024-08-23 05:41] LABS: ANISOCYTOSIS 1+; PLATELET ESTIMATE DECRE
[2024-08-23] MEDS ORDERED: EPINEPHRINE (1:10,000) SYRINGE 1 MG/10 ML DISP.SYRIN IVP ONE (15:56)
== END 2024-08-23 17:35 | DRG 710 ==
LOC: ER 08:05 → TELE1 11:10 → TELE-TD 14:17 → ICU 07-29 17:11 → TELE-TD 08-07 20:00 → TELE1 08-08 13:26 → ICUOV 08-19 13:56 → ICU 08-19 17:41
PROVIDERS: ATTEND Nurse Practitioner Family
PROC: 5A1955Z Respiratory Ventilation, Greater than 96 Consecutive Hours (ICD-10-PCS; principal; 2024-07-28)
PROC: 0KBN0ZZ Excision of Right Hip Muscle, Open Approach (ICD-10-PCS; 2024-07-30)
PROC: 0KBP0ZZ Excision of Left Hip Muscle, Open Approach (ICD-10-PCS; 2024-07-30)
PROC: 0JB70ZZ Excision of Back Subcutaneous Tissue and Fascia, Open Approach (ICD-10-PCS; 2024-08-06)
PROC: 30233N1 Transfusion of Nonautologous Red Blood Cells into Peripheral Vein, Percutaneous Approach (ICD-10-PCS; 2024-08-06)
PROC: 0DW6XUZ Revision of Feeding Device in Stomach, External Approach (ICD-10-PCS; 2024-08-15)
PROC: 30233R1 Transfusion of Nonautologous Platelets into Peripheral Vein, Percutaneous Approach (ICD-10-PCS; 2024-08-20)
PROC: 02HV33Z Insertion of Infusion Device into Superior Vena Cava, Percutaneous Approach (ICD-10-PCS; 2024-08-20)
PROC: B548ZZA Ultrasonography of Superior Vena Cava, Guidance (ICD-10-PCS; 2024-08-20)
PROC: 03H533Z Insertion of Infusion Device into Right Axillary Artery, Percutaneous Approach (ICD-10-PCS; 2024-08-22)
PROC: 5A12012 Performance of Cardiac Output, Single, Manual (ICD-10-PCS; 2024-08-23)
DX: A41.9 Sepsis, unspecified organism (principal); N17.0 Acute kidney failure with tubular necrosis; D65 Disseminated intravascular coagulation [defibrination syndrome]; R65.21 Severe sepsis with septic shock; J95.851 Ventilator associated pneumonia; J15.69 Pneumonia due to other Gram-negative bacteria; L89.153 Pressure ulcer of sacral region, stage 3; R40.3 Persistent vegetative state; J44.0 Chronic obstructive pulmonary disease with (acute) lower respiratory infection; E87.0 Hyperosmolality and hypernatremia; E87.4 Mixed disorder of acid-base balance; G93.1 Anoxic brain damage, not elsewhere classified; J96.10 Chronic respiratory failure, unspecified whether with hypoxia or hypercapnia; N39.0 Urinary tract infection, site not specified; R13.10 Dysphagia, unspecified; L03.311 Cellulitis of abdominal wall; L02.211 Cutaneous abscess of abdominal wall; K21.9 Gastro-esophageal reflux disease without esophagitis; G40.909 Epilepsy, unspecified, not intractable, without status epilepticus; K94.29 Other complications of gastrostomy; Y84.8 Other medical procedures as the cause of abnormal reaction of the patient, or of later complication, without mention of misadventure at the time of the procedure; D64.9 Anemia, unspecified; E87.6 Hypokalemia; I48.91 Unspecified atrial fibrillation; Z93.0 Tracheostomy status; Z99.11 Dependence on respirator [ventilator] status; K52.9 Noninfective gastroenteritis and colitis, unspecified; I47.10 Supraventricular tachycardia, unspecified; S31.101A Unspecified open wound of abdominal wall, left upper quadrant without penetration into peritoneal cavity, initial encounter; X58.XXXA Exposure to other specified factors, initial encounter; Y93.9 Activity, unspecified; Y92.129 Unspecified place in nursing home as the place of occurrence of the external cause; B96.4 Proteus (mirabilis) (morganii) as the cause of diseases classified elsewhere; L89.899 Pressure ulcer of other site, unspecified stage; Y73.8 Miscellaneous gastroenterology and urology devices associated with adverse incidents, not elsewhere classified; M89.8X9 Other specified disorders of bone, unspecified site; Z16.24 Resistance to multiple antibiotics; E87.70 Fluid overload, unspecified; J98.11 Atelectasis
CPT/HCPCS: 31720; 36415; 36569; 36600; 71045-TC; 71260-TC; 74018; 74150-TC; 80048-TC; 80053-TC; 80061-TC; 80076-TC; 80202-TC; 81001; 82533; 82570-TC; 82803-TC; 82962-TC; 83605-TC; 83735-TC; 83880; 84100-TC; 84300-TC; 84443-TC; 84484-TC; 85025-TC; 85027-TC; 85396; 85730-TC; 86850-TC; 87040-TC; 87081-TC; 87086-TC; 92950-TC; 93307-TC; 94003-TC; 94760-TC; 94762-TC; 94799-TC; 99082-TC; A4216; A4223; A4623; A6253; A6403; A7526; C1751; G0378; J0171; J0692; J1160; J1650; J1720; J1940; J1953; J2185; J2248; J2470; J2543; J3370; J3475; J3480; J3490; J7030; J7040; J7042; J7050; J7060; J7070; P9016; P9034; Q9963; Q9967